=== PATIENT | male | born 1985 | race Caucasian/White ===

== ENCOUNTER 2020-09-24 01:08 | Emergency (ER) | payer OTHER, SELFPAY ==
[2020-09-24] MEDS ORDERED: HYDROCODONE/APAP 10/325 TAB ONE (02:12)
--- NOTE | 2020-09-24 02:22 | EDPHYS ---
Physician Documentation [facility] Name: Silvino López Age: 35 yrs Sex: Male : 1985 Arrival Date: 09/24/2020 Time: 01:12 Bed 6 Private MD: ED Physician Chris Slater HPI: 09/24 01:15 This 35 yrs old Male presents to ER via EMS with complaints of Ankle Injury. rn 01:15 The patient presents with an injury, pain, swelling. The complaints affect the right rn ankle. Onset: The symptoms/episode began/occurred just prior to arrival. Associated signs and symptoms: Pertinent positives: swelling, Pertinent negatives: weakness. Modifying factors: The symptoms are alleviated by OTC meds, the symptoms are aggravated by movement. Severity of symptoms: At their worst the symptoms were moderate, in the emergency department the symptoms have improved. The patient has not experienced similar symptoms in the past. The patient has not recently seen a physician. Reports right ankle injury after drinking and slipping in mud, heard a snap. No other injuries. Denies pain up towards knee or down to foot. . Historical: - Allergies: 01:15 No Known Allergies; jm8 - Home Meds: 01:15 Lisinopril Oral [Active]; atorvastatin oral [Active]; Metoprolol Tartrate Oral [Active];8 - PMHx: 01:16 Hypertensive disorder; Hypercholesterolemia; jm8 - PSHx: 01:16 None; jm8 - Immunization history:: Adult Immunizations up to date. - Social history:: Smoking status: Reported history of juuling and/or vaping. - Family history:: not pertinent. - Hospitalizations: : No recent hospitalization is reported. ROS: 01:15 Constitutional: Negative for fever, chills, and weight loss, Neck: Negative for injury, rn pain, and swelling, Cardiovascular: Negative for chest pain, palpitations, and edema, Back: Negative for injury and pain, MS/Extremity: + right ankle injury and pain Skin: No open wounds Neuro: Negative for weakness, numbness, tingling Exam: 01:15 Constitutional: This is a well developed, well nourished patient who is awake, alert, rn and in no acute distress. Head/Face: Normocephalic, atraumatic. MS/ Extremity: Pulses equal, no cyanosis. Neurovascular intact. + mild bimalleolar tenderness of right ankle, mild swelling at ankle, no gross deformity or rotation. In [place] splint. No tenderness in foot or knee of RLE. Vital Signs: 01:12 BP 132 / 74; Pulse 99; Resp 16; Temp 98.2; Pulse Ox 97% on R/A; Weight 99.79 kg; Height jm8 6 ft. (182.88 cm); Pain 6/10; 02:19 BP 109 / 76; Pulse 107; Resp 16; Pulse Ox 98% on R/A; 8 01:12 Body Mass Index 29.84 (99.79 kg, 182.88 cm) [facility] MDM: 01:12 Patient medically screened. rn 02:20 Differential diagnosis: fracture, sprain. Data reviewed: vital signs, nurses notes, rn radiologic studies, plain films, and as a result, I will discharge patient. Test interpretation: by ED physician or midlevel provider: plain radiologic studies, Xray right ankle shows minimally displaced tri-malleolar fracture. . Counseling: I had a detailed discussion with the patient and/or guardian regarding: the historical points, exam findings, and any diagnostic results supporting the discharge/admit diagnosis, radiology results, the need for outpatient follow up, to return to the emergency department if symptoms worsen or persist or if there are any questions or concerns that arise at home. Response to treatment: the patient's symptoms have markedly improved after treatment, and as a result, I will discharge patient. Special discussion: I discussed with the patient/guardian in detail that at this point there is no indication for admission to the hospital. It is understood, however, that if the symptoms persist or worsen the patient needs to return immediately for re-evaluation. Based on the history and exam findings, there is no indication for further emergent testing or inpatient evaluation. I discussed with the patient/guardian the need to see the orthopedic surgeon for further evaluation of the symptoms. 09/24 01:12 Order name: XRAY Ankle RIGHT 3 view rn 09/24 01:44 Order name: Splint Leg: Short Leg: with stirrup; Complete Time: 01:45 rn 09/24 02:24 Order name: Crutches; Complete Time: 02:46 rn Administered Medications: 02:17 Drug: [place] (HYDROcodone-acetaminophen) 10 mg-325 mg 1 tabs Route: PO; 8 02:48 Follow up: Response: No adverse reaction jm8 Disposition Summary: 09/24/20 02:22 Discharge Ordered Location: Home rn Problem: new rn Symptoms: have improved rn Condition: Stable rn Diagnosis - Displaced fracture of lateral malleolus of right fibula rn - Fracture of medial malleolus - With displacement rn - Fracture of lower end of tibia - Posterior tibia, nondisplaced rn Followup: rn - With: - When: 2 - 3 days - Reason: Recheck today's complaints, Re-evaluation by your physician Discharge Instructions: - Discharge Summary Sheet rn - Ankle Fracture rn - Cast or Splint Care, Adult rn - Displaced Trimalleolar Ankle Fracture Treated With ORIF rn Forms: - Medication Reconciliation Form rn - Thank You Letter rn - Antibiotic mergers and acquisitions attorney - Prescription Opioid Use rn Prescriptions: - Tramadol 50 mg Oral Tablet - take 1 tablet by ORAL route every 8 hours as needed; 15 tablet; Refills: 0, rn Product Selection Permitted Signatures: Dispatcher [employer] EDChris Dorado MD MD rn Malcaba, Joseph, RN RN jm8 Corrections: (The following items were deleted from the chart) 01:17 01:15 Constitutional: Negative for fever, chills, and weight loss, MS/Extremity: + rn right ankle injury and pain Skin: No open wounds Neuro: Negative for weakness, numbness, tingling rn
--- NOTE | 2020-09-24 02:22 | ER ---
Nurse's Notes [facility] Name: Silvino López Age: 35 yrs Sex: Male : 1985 Arrival Date: 09/24/2020 Time: 01:12 Bed 6 Private MD: Diagnosis: Displaced fracture of lateral malleolus of right fibula;Fracture of medial malleolus-With displacement;Fracture of lower end of tibia-Posterior tibia, nondisplaced Presentation: 09/24 01:12 Chief complaint: EMS states: patient slipped in some mud and fell. States he heard a jm8 pop and had sudden pain in right ankle. Swelling noted to right ankle. Patient states he drank about half a bottle of [place] tonight. Coronavirus screen: Client denies travel out of the [place] in the last 14 days. Ebola Screen: Patient negative for fever greater than or equal to 101.5 degrees Fahrenheit, and additional compatible Ebola Virus Disease symptoms Patient denies exposure to infectious person. Patient denies travel to an Ebola-affected area in the 21 days before illness onset. Initial Sepsis Screen: Does the patient meet any 2 criteria? No. Patient's initial sepsis screen is negative. Does the patient have a suspected source of infection? No. Patient's initial sepsis screen is negative. Risk Assessment: Do you want to hurt yourself or someone else? Patient reports no desire to harm self or others. Onset of symptoms was September 24, 2020 at 00:00. Care prior to arrival: Splint applied. Medication(s) given: Tylenol, 1000 mg, zofran 4 mg, IV initiated. 01:12 Method Of Arrival: EMS: [facility] jm8 01:12 Acuity: ELLEN 3 jm8 Triage Assessment: 01:23 General: Appears in no apparent distress. uncomfortable, Behavior is calm, cooperative, jm8 appropriate for age. Pain: Complains of pain in right ankle Pain currently is 6 out of 10 on a pain scale. Quality of pain is described as aching, Pain began suddenly, 1 hour ago. Also complains of nausea. EENT: No deficits noted. No signs and/or symptoms were reported regarding the EENT system. Neuro: No deficits noted. Cardiovascular: No deficits noted. Respiratory: No deficits noted. GI: No deficits noted. No signs and/or symptoms were reported involving the gastrointestinal system. : No deficits noted. No signs and/or symptoms were reported regarding the genitourinary system. Derm: No deficits noted. No signs and/or symptoms reported regarding the dermatologic system. Musculoskeletal: Bony deformity noted of right ankle Swelling present in right ankle. Historical: - Allergies: 01:15 No Known Allergies; jm8 - Home Meds: 01:15 Lisinopril Oral [Active]; atorvastatin oral [Active]; Metoprolol Tartrate Oral [Active];jm8 - PMHx: 01:16 Hypertensive disorder; Hypercholesterolemia; jm8 - PSHx: 01:16 None; jm8 - Immunization history:: Adult Immunizations up to date. - Social history:: Smoking status: Reported history of juuling and/or vaping. - Family history:: not pertinent. - Hospitalizations: : No recent hospitalization is reported. Screenin:17 Abuse screen: Denies threats or abuse. Denies injuries from another. Nutritional jm8 screening: No deficits noted. Tuberculosis screening: No symptoms or risk factors identified. Fall Risk None identified. Vital Signs: 01:12 BP 132 / 74; Pulse 99; Resp 16; Temp 98.2; Pulse Ox 97% on R/A; Weight 99.79 kg; Height jm8 6 ft. (182.88 cm); Pain 6/10; 02:19 BP 109 / 76; Pulse 107; Resp 16; Pulse Ox 98% on R/A; jm8 01:12 Body Mass Index 29.84 (99.79 kg, 182.88 cm) jm8 ED Course: 01:12 Patient arrived in ED. ag3 01:12 Chris Slater MD is Attending Physician. rn 01:15 Triage completed. jm8 01:17 Arm band placed on right wrist. jm8 01:17 Patient has correct armband on for positive identification. Bed in low position. Call jm8 light in reach. Side rails up X2. 01:30 Maintain EMS IV. Dressing intact. Good blood return noted. Site clean \T\ dry. Gauge \T\ jm 8 site: 20g left hand. 01:31 XRAY Ankle RIGHT 3 view In Process Unspecified. EDMS 02:18 Orthoglass splint: Posterior short lleg splint applied on right leg. stirrup splint jm8 applied on right leg. 02:22 Austen Grant MD is Referral Physician. rn 02:47 No provider procedures requiring assistance completed. IV discontinued, intact, jm8 bleeding controlled. Administered Medications: 02:17 Drug: [place] (HYDROcodone-acetaminophen) 10 mg-325 mg 1 tabs Route: PO; jm8 02:48 Follow up: Response: No adverse reaction jm8 Outcome: 02:22 Discharge ordered by . rn 02:46 Discharged to home via wheelchair, with crutches, with family. jm8 02:46 Condition: good 02:46 Discharge instructions given to patient, Instructed on discharge instructions, follow up and referral plans. medication usage, crutch walking, Demonstrated understanding of instructions, follow-up care, medications, crutch walking, splint care, Prescriptions given X 1. 02:47 Patient left the ED. jm8 Signatures: Dispatcher [employer] EDMS Chris Slater MD MD rn Gomez, Alice ag3 Ezio Duke, RN RN jm8
--- OUTSIDE RECORDS SUMMARY | 2020-09-24 02:29 | XMS REPORT | Continuity of Care Document ---
:[address] [facility] t Address [address] [place] [address] [address] [place] [address] Care Team Providers Name Role Phone Doctor Unassigned, Name Attending Clinician Unavailable Care, Primary Attending Clinician Unavailable Problems This patient has no known problems. Allergies, Adverse Reactions, Alerts This patient has no known allergies or adverse reactions. Medications This patient has no known medications. Procedures This patient has no known procedures. Encounters Start End Encounter Admission Attending Care Care Encounter Source Date/Time Date/Time Type Type Clinicians Facility Department ID 2020-09-21 2020-09-21 Orders Doctor KLAUDIA [id number] 00:00:00 00:00:00 Only UnassignedAGUSTIN [id number] [facility] [id number] 2020-09-15 2020-09-15 Office Care, Jose PARIKH [id number] 09:38:15 13:28:59 Visit [facility] [id number] [facility] [id number] UNIT [id number] Results This patient has no known results.
[2020-09-24 03:06] VITALS: BP 109/76; TEMP 98.2; O2SAT 98
--- NOTE | 2020-09-24 09:31 | RAD REPORT ---
EXAM DESCRIPTION: RAD - Ankle Right 3 View - 09/24/2020 1:31 am CLINICAL HISTORY: slipped in mud, heard a snap;Pain Pain and swelling, trauma COMPARISON: No comparisons FINDINGS: Oblique fracture of the distal fibula is present. Mildly displaced fracture of the medial malleolus and posterior malleolus noted. Moderate surrounding soft tissue swelling. Small to moderate posterior and plantar calcaneal spurs. IMPRESSION: Trimalleolar ankle fracture is present.
== END 2020-09-24 02:47 | disposition home or self-care (01) ==
LOC: ER 01:08
PROC: 2W3QX1Z Immobilization of Right Lower Leg using Splint (ICD-10-PCS; principal; 2020-09-24)
DX: S82.51XA Displaced fracture of medial malleolus of right tibia, initial encounter for closed fracture (principal); S82.61XA Displaced fracture of lateral malleolus of right fibula, initial encounter for closed fracture; W01.0XXA Fall on same level from slipping, tripping and stumbling without subsequent striking against object, initial encounter; I10 Essential (primary) hypertension; E78.00 Pure hypercholesterolemia, unspecified
CPT/HCPCS: 99284

== ENCOUNTER 2020-12-17 04:38 | Emergency (ER) | payer SELFPAY ==
[2020-12-17] MEDS ORDERED: MORPHINE 4 MG/ML SYR ONE (05:47)
--- NOTE | 2020-12-17 06:27 | ER ---
Nurse's Notes [facility] Name: Silvino López Age: 35 yrs Sex: Male : 1985 Arrival Date: 12/17/2020 Time: 04:42 Bed 13 Private MD: Diagnosis: Musculoskeletal Pain Presentation: 12/17 04:48 Chief complaint: Patient states: patient states that he had surgery on 11.30.20 on C6 and lh3 C7 vertebrae. due to having numbness and tingling in arms. Patient states that it feels way worse now after the surgery. C/O pain left arm pain 11/01. Took Ibuprofen at 2300 yesterday. Coronavirus screen: Vaccine status: Patient reports receiving the 1st dose of the Covid vaccine. Date November 2020. Ebola Screen: No symptoms or risks identified at this time. Initial Sepsis Screen: Does the patient meet any 2 criteria? No. Patient's initial sepsis screen is negative. Does the patient have a suspected source of infection? No. Patient's initial sepsis screen is negative. Risk Assessment: Do you want to hurt yourself or someone else? Patient reports no desire to harm self or others. Onset of symptoms was December 15, 2020. Care prior to arrival: Medication(s) given: Motrin, 800 mg, 2300 12.16.20. 04:48 Method Of Arrival: Ambulatory 3 04:48 Acuity: ELLEN 3 3 Triage Assessment: 04:52 General: Appears in no apparent distress. Behavior is calm, cooperative, appropriate lh3 for age. Pain: Complains of pain in left arm Pain radiates to posterior aspect of left shoulder. Historical: - Home Meds: 04:52 lisinopril Oral [Active]; Metoprolol Tartrate Oral [Active]; lh3 - PMHx: 04:52 Hypercholesterolemia; Hypertensive disorder; lh3 - Immunization history:: Adult Immunizations up to date. - Social history:: Smoking status: Reported history of juuling and/or vaping. Screenin:35 Abuse screen: Denies threats or abuse. Denies injuries from another. Nutritional sj1 screening: No deficits noted. Tuberculosis screening: No symptoms or risk factors identified. Fall Risk None identified. Vital Signs: 04:48 BP 150 / 94; Pulse 100; Resp 18; Temp 98.3; Pulse Ox 99% on R/A; Weight 117.93 kg; 3 Height 6 ft. (182.88 cm); 06:59 BP 134 / 78; Pulse 65; Resp 18; Temp 98.4; Pulse Ox 100% ; Pain 0/10; sj1 04:48 Body Mass Index 35.26 (117.93 kg, 182.88 cm) 3 ED Course: 04:42 Patient arrived in ED. 04:52 Triage completed. 3 04:52 Arm band placed on right wrist. [facility] 04:57 Ke Allison MD is Attending Physician. 7 05:35 Patient has correct armband on for positive identification. Bed in low position. Call 1 light in reach. Side rails up X 1. 05:35 UPPER EXTREMITY VENOUS UNILATE Sent. sj1 05:35 No provider procedures requiring assistance completed. sj1 06:24 UPPER EXTREMITY VENOUS UNILATE In Process Unspecified. EDMS 06:59 Patient did not have IV access during this emergency room visit. sj1 Administered Medications: 05:34 Drug: morphine 4 mg Route: IM; Site: right deltoid; sj1 07:01 Follow up: Response: No adverse reaction sj1 Outcome: 06:26 Discharge ordered by . 7 06:59 Discharged to home ambulatory. sj1 06:59 Condition: stable 06:59 Discharge instructions given to patient, Instructed on discharge instructions, follow up and referral plans. Demonstrated understanding of instructions. 07:00 Patient left the ED. sj1 Signatures: Dispatcher [employer] EDPA Ke Allison MD MD [facility] Aarti Zapata dEen Cuevas RN RN [facility] Nevaeh Bland RN RN sj1
--- NOTE | 2020-12-17 06:27 | EDPHYS ---
Physician Documentation [facility] Name: Silvino López Age: 35 yrs Sex: Male : 1985 Arrival Date: 12/17/2020 Time: 04:42 Bed 13 Private MD: ED Physician Ke Allison HPI: 12/17 05:19 This 35 yrs old Male presents to ER via Ambulatory with complaints of Pain mh7 down left side, thinks from recent surgery. 05:19 The patient or guardian complains of pain, that is acute. The complaints affect the mh7 Left arm. Context: The problem was sustained at an unknown location, resulted from unknown cause. Onset: The symptoms/episode began/occurred 1 week(s) ago. Treatment prior to arrival includes: over the counter medications, NSAIDS. Modifying factors: The symptoms are alleviated by nothing. the symptoms are aggravated by Touching. Associated signs and symptoms: Pertinent negatives: decreased range of motion, deformity, erythema, fever, nausea, numbness, swelling, tingling, vomiting, warmth, weakness. Severity of symptoms: At their worst the symptoms were moderate, 3 day(s) ago, in the emergency department the symptoms are unchanged. Patient states that he has left arm pain over the past week or 2. He states that he had neck surgery on 11/30/2020 for radiculopathy. States that this pain is different and new since having surgery. Denies any neck pain, fever, cough, chest pain, shortness of breath, abdominal pain, nausea, vomiting, dizziness, or focal weakness.. Historical: - Home Meds: 04:52 lisinopril Oral [Active]; Metoprolol Tartrate Oral [Active]; lh3 - PMHx: 04:52 Hypercholesterolemia; Hypertensive disorder; lh3 - Immunization history:: Adult Immunizations up to date. - Social history:: Smoking status: Reported history of juuling and/or vaping. ROS: 05:19 Constitutional: Negative for fever, chills, and weight loss, Eyes: Negative for injury, mh7 pain, redness, and discharge, ENT: Negative for injury, pain, and discharge, Neck: Negative for injury, pain, and swelling, Cardiovascular: Negative for chest pain, palpitations, and edema, Respiratory: Negative for shortness of breath, cough, wheezing, and pleuritic chest pain, Abdomen/GI: Negative for abdominal pain, nausea, vomiting, diarrhea, and constipation, Back: Negative for injury and pain, : Negative for injury, bleeding, discharge, and swelling, Skin: Negative for injury, rash, and discoloration, Neuro: Negative for headache, weakness, numbness, tingling, and seizure, Psych: Negative for depression, anxiety, suicide ideation, homicidal ideation, and hallucinations, Allergy/Immunology: Negative for hives, rash, and allergies, Endocrine: Negative for neck swelling, polydipsia, polyuria, polyphagia, and marked weight changes, Hematologic/Lymphatic: Negative for swollen nodes, abnormal bleeding, and unusual bruising. Exam: 05:19 Constitutional: This is a well developed, well nourished patient who is awake, alert, mh7 and in no acute distress. Head/Face: Normocephalic, atraumatic. Eyes: Pupils equal round and reactive to light, extra-ocular motions intact. Lids and lashes normal. Conjunctiva and sclera are non-icteric and not injected. Cornea within normal limits. Periorbital areas with no swelling, redness, or edema. Neck: Trachea midline, no thyromegaly or masses palpated, and no cervical lymphadenopathy. Supple, full range of motion without nuchal rigidity, or vertebral point tenderness. No Meningismus. Chest/axilla: Normal chest wall appearance and motion. Nontender with no deformity. No lesions are appreciated. Cardiovascular: Regular rate and rhythm with a normal S1 and S2. No gallops, murmurs, or rubs. Normal PMI, no JVD. No pulse deficits. Respiratory: Lungs have equal breath sounds bilaterally, clear to auscultation and percussion. No rales, rhonchi or wheezes noted. No increased work of breathing, no retractions or nasal flaring. Abdomen/GI: Soft, non-tender, with normal bowel sounds. No distension or tympany. No guarding or rebound. No evidence of tenderness throughout. Back: No spinal tenderness. No costovertebral tenderness. Full range of motion. Skin: Warm, dry with normal turgor. Normal color with no rashes, no lesions, and no evidence of cellulitis. 05:19 Neuro: Awake and alert, GCS 15, oriented to person, place, time, and situation. Cranial nerves II-XII grossly intact. Motor strength 5/5 in all extremities. Sensory grossly intact. Cerebellar exam normal. Normal gait. Psych: Awake, alert, with orientation to person, place and time. Behavior, mood, and affect are within normal limits. 05:19 Musculoskeletal/extremity: Extremities: noted in the Medial left upper arm: pain, tenderness, ROM: intact in all extremities, Circulation is intact in all extremities. Sensation intact. Compartment Syndrome exam of affected extremity: is normal. no numbness, no tingling, no sensation deficit, no palor, no weak pulses, Joints: All joints appear normal with full range of motion. Vital Signs: 04:48 BP 150 / 94; Pulse 100; Resp 18; Temp 98.3; Pulse Ox 99% on R/A; Weight 117.93 kg; lh3 Height 6 ft. (182.88 cm); 06:59 BP 134 / 78; Pulse 65; Resp 18; Temp 98.4; Pulse Ox 100% ; Pain 0/10; sj1 04:48 Body Mass Index 35.26 (117.93 kg, 182.88 cm) 3 MDM: 06:22 Differential diagnosis: tendonitis, DVT, musculoskeletal pain. Data reviewed: vital [facility] signs, nurses notes, radiologic studies, ultrasound. Data interpreted: Pulse oximetry: on room air is 99 %. Interpretation: normal. Counseling: I had a detailed discussion with the patient and/or guardian regarding: the historical points, exam findings, and any diagnostic results supporting the discharge/admit diagnosis, the presence of at least one elevated blood pressure reading (>120/80) during this emergency department visit, radiology results, the need for outpatient follow up, a neurosurgeon, to return to the emergency department if symptoms worsen or persist or if there are any questions or concerns that arise at home. Response to treatment: the patient's symptoms have resolved after treatment, the patient's blood pressure is in an acceptable range, mental status has returned to baseline, the patient no longer shows bradycardia, the patient is not short of breath, the patient is not tachycardic, the patient's pain is gone, the patient's temperature has normalized. 06:26 Patient medically screened. [facility] 12/17 05:22 Order name: UPPER EXTREMITY VENOUS UNILATE [facility] 12/17 05:19 Order name: EKG; Complete Time: 05:19 [facility] 12/17 05:19 Order name: EKG - Nurse/Tech; Complete Time: 05:35 mh7 Administered Medications: 05:34 Drug: morphine 4 mg Route: IM; Site: right deltoid; sj1 07:01 Follow up: Response: No adverse reaction sj1 Disposition Summary: 12/17/20 06:26 Discharge Ordered Location: Home [facility] Problem: an ongoing problem [facility] Symptoms: have improved [facility] Condition: Stable [facility] Diagnosis - Musculoskeletal Pain [facility] Followup: [facility] - With: Private Physician - When: 1 - 2 days - Reason: Worsening of condition, Recheck today's complaints, Continuance of care, Re-evaluation by your physician Discharge Instructions: - Discharge Summary Sheet [facility] - Musculoskeletal Pain [facility] Forms: - Medication Reconciliation Form [facility] - Thank You Letter [facility] - Antibiotic Education [facility] - Prescription Opioid Use [facility] Signatures: Dispatcher [employer] Ke Mike MD MD 7 Eden Cuevas RN RN 3 Nevaeh Bland RN RN sj1 Corrections: (The following items were deleted from the chart) 05:22 05:19 Extremity Venous [id number] ordered. EDMS EDMS
[2020-12-17 07:25] VITALS: BP 134/78; TEMP 98.4; O2SAT 100
--- NOTE | 2020-12-17 09:52 | RAD REPORT ---
EXAM DESCRIPTION: US - UPPER EXTREMITY VENOUS UNILATE - 12/17/2020 6:24 am CLINICAL HISTORY: PAIN Arm pain and swelling COMPARISON: No comparisons FINDINGS: Left upper extremity venous system was interrogated with Doppler technique. Normal flow, c ompressibility and augmentation was noted. There is no DVT present. IMPRESSION: No evidence of left upper extremity deep venous thrombosis.
== END 2020-12-17 07:00 | disposition home or self-care (01) ==
LOC: ER 04:38
DX: M79.602 Pain in left arm (principal); I10 Essential (primary) hypertension; E78.00 Pure hypercholesterolemia, unspecified
CPT/HCPCS: 93005; 93971; 96372; 99283

== ENCOUNTER 2021-09-24 02:58 | Emergency (ER) | payer SELFPAY ==
[2021-09-24] MEDS ORDERED: MORPHINE 4 MG/ML SYR ONE (03:31)
[2021-09-24] MEDS ORDERED: KETOROLAC 30 MG/ML INJ ONE (03:32)
[2021-09-24] MEDS ORDERED: ONDANSETRON 4 MG/2 ML VIAL ONE (03:32)
[2021-09-24] MEDS ORDERED: NA CHLORIDE 0.9% 1,000 ML ONE ×2 (03:32→06:13)
[2021-09-24 03:45] LABS: Absolute Lymphocytes (CBC) 1.8 K/uL (0.7-4.9); Hematocrit 41.8 % (39.6-49.0); Lymphocytes % 18.9 % (15.3-44.8); MPV 7.3 fL (7.6-11.3)
--- NOTE | 2021-09-24 03:53 | RAD REPORT ---
EXAM DESCRIPTION: CTStone Protocol - 09/24/2021 3:45 am CLINICAL HISTORY: Flank pain, kidney stone suspected COMPARISON: No comparisons TECHNIQUE: CT of the abdomen and pelvis was performed. All CT scans are performed using dose optimization technique as appropriate and may include automated exposure control or mA/KV adjustment according to patient size. FINDINGS: Lower chest: No acute abnormality. Liver: Hepatic steatosis Biliary: No biliary ductal dilatation. Stomach: No significant focal abnormality. Duodenum: No significant focal abnormality. Pancreas: No significant abnormality. Spleen: No significant abnormality. Adrenal: No suspicious lesions. Kidney/ureter: Mild left-sided hydronephrosis secondary to a 7 mm stone in the left proximal ureter. Bilateral nephrolithiasis. Retroperitoneum: No retroperitoneal adenopathy. Vascular: No aneurysm. Bowel: No significant focal abnormality. Normal appendix. Peritoneum: No ascites or free air. Small fat containing periumbilical hernia. Bladder: Grossly unremarkable. Reproductive: No adnexal masses. Bones: No acute fracture. Other: n/a IMPRESSION: Mild left-sided hydronephrosis secondary to a 7 mm stone in the left proximal ureter.
[2021-09-24 04:02] LABS: Albumin 3.6 g/dL (3.4-5.0); Bilirubin Total 0.4 mg/dL (0.2-1.0); Protein, Total 7.5 g/dL (6.4-8.2)
--- NOTE | 2021-09-24 05:47 | ER ---
Nurse's Notes [facility] Name: Silvino López Age: 36 yrs Sex: Male : 1985 Arrival Date: 09/24/2021 Time: 02:58 Bed 20 Private MD: Diagnosis: Hydronephrosis with renal and ureteral calculous obstruction-7 mm left proximal Presentation: 09/24 03:04 Chief complaint: Patient states: "i just have this incredibly sharp pain in my side and tw5 it wont go away. I feel sick and nauseous.". Coronavirus screen: Vaccine status: Patient reports receiving the 2nd dose of the covid vaccine. Moderna. Ebola Screen: Patient negative for fever greater than or equal to 101.5 degrees Fahrenheit, and additional compatible Ebola Virus Disease symptoms Patient denies exposure to infectious person. Patient denies travel to an Ebola-affected area in the 21 days before illness onset. Initial Sepsis Screen: Does the patient meet any 2 criteria? No. Patient's initial sepsis screen is negative. Does the patient have a suspected source of infection? No. Patient's initial sepsis screen is negative. Initial Sepsis Screen: Does the patient meet any 2 criteria?. Risk Assessment: Do you want to hurt yourself or someone else? Patient reports no desire to harm self or others. Onset of symptoms was September 23, 2021 at 15:00. 03:04 Method Of Arrival: Ambulatory tw5 03:04 Acuity: ELLEN 3 tw5 Triage Assessment: 03:06 General: Appears uncomfortable, Behavior is crying. Pain: Pain currently is 10 out of tw5 10 on a pain scale. GI: Reports nausea. Historical: - Allergies: 03:06 No Known Allergies; tw5 - Home Meds: 03:06 lisinopril 20 mg oral tab [Active]; metoprolol tartrate 50 mg oral tab [Active]; Livalo tw5 oral [Active]; - PMHx: 03:06 Hypercholesterolemia; Hypertensive disorder; tw5 - PSHx: 03:06 disc fusion; tw5 - Immunization history:: Flu vaccine is not up to date. - Social history:: Smoking status: Reported history of juuling and/or vaping. Screenin:47 Abuse screen: Denies threats or abuse. Nutritional screening: No deficits noted. ll3 Tuberculosis screening: No symptoms or risk factors identified. Fall Risk No fall in past 12 months (0 pts). No secondary diagnosis (0 pts). IV access (20 points). Ambulatory Aid- None/Bed Rest/Nurse Assist (0 pts). Gait- Normal/Bed Rest/Wheelchair (0 pts) Mental Status- Oriented to own ability (0 pts). Total Fleming Fall Scale indicates No Risk (0-24 pts). Assessment: 03:15 General: Appears uncomfortable, Behavior is calm, cooperative. Pain: Complains of pain ll3 in left mid back and left low back Pain currently is 10 out of 10 on a pain scale. Pain began 2-3 days ago. Is continuous. Neuro: Level of Consciousness is awake, alert, obeys commands, Oriented to person, place, time, situation. Respiratory: Respiratory effort is even, unlabored, Respiratory pattern is regular, symmetrical. GI: Abdomen is round non-distended, Reports nausea, Patient currently denies vomiting. Derm: Skin is pink, warm \\T\\ dry. 04:30 Reassessment: No changes from previously documented assessment. Patient and/or family ll3 updated on plan of care and expected duration. Pain level reassessed. Patient is alert, oriented x 3, equal unlabored respirations, skin warm/dry/pink. 07:05 Reassessment: No changes from previously documented assessment. report received night ll1 shift RN. 07:26 Reassessment: No changes from previously documented assessment. Patient and/or family ll1 updated on plan of care and expected duration. Pain level reassessed. Patient is alert, oriented x 3, equal unlabored respirations, skin warm/dry/pink. Patient states feeling better. Vital Signs: 03:04 BP 135 / 70; Pulse 88; Resp 22; Temp 98.6; Pulse Ox 96% on R/A; Weight 65.77 kg; Height tw5 6 ft. 0 in. (182.88 cm); Pain 10/10; 04:30 BP 113 / 63; Pulse 80; Resp 18; Pulse Ox 98% on R/A; ll3 07:25 BP 140 / 77; Pulse 78; Resp 17; Pulse Ox 100% on R/A; ll1 03:04 Body Mass Index 19.67 (65.77 kg, 182.88 cm) tw5 ED Course: 02:58 Patient arrived in ED. am2 03:06 Triage completed. tw5 03:06 Arm band placed on Patient placed in an exam room. tw5 03:11 Kiran Gambino MD is Attending Physician. luli 03:46 Elsy Jansen, RADHA is Primary Nurse. ll3 03:47 CT Stone Protocol In Process Unspecified. EDMS 03:47 Patient has correct armband on for positive identification. Bed in low position. Call ll3 light in reach. Side rails up X 1. Adult w/ patient. 05:47 Chang Dobbs MD is Referral Physician. luli 07:25 No provider procedures requiring assistance completed. IV discontinued, intact, ll1 bleeding controlled, No redness/swelling at site. Pressure dressing applied. Administered Medications: 03:32 Drug: Zofran (Ondansetron) 4 mg Route: IVP; Site: right antecubital; ll3 07:33 Follow up: Response: No adverse reaction ll1 03:33 Drug: morphine 4 mg Route: IVP; Infused Over: 4 mins; Site: right antecubital; ll3 07:24 Follow up: Response: No adverse reaction ll1 03:41 Drug: NS 0.9% 1000 ml Route: IV; Rate: 1 bolus; Site: right antecubital; ll3 07:33 Follow up: Response: No adverse reaction; IV Status: Completed infusion; IV Intake: ll1 1000ml 03:41 Drug: Ketorolac 30 mg Route: IVP; Site: right antecubital; ll3 07:24 Follow up: Response: No adverse reaction ll1 06:13 Drug: NS 0.9% 1000 ml Route: IV; Rate: 1 bolus; Site: right antecubital; ke1 07:24 Follow up: Response: No adverse reaction; IV Status: Completed infusion; IV Intake: ll1 1000ml 06:14 Drug: Rocephin (cefTRIAXone) 1 grams Route: IV; Rate: per protocol; Site: right ke1 antecubital; 07:24 Follow up: Response: No adverse reaction; IV Status: Completed infusion; IV Intake: [id number] Medication: 05:00 VIS not applicable for this client. ll3 Intake: 07:24 IV: 50ml; Total: 50ml. ll1 07:24 IV: 1000ml; Total: 1050ml. ll1 07:33 IV: 1000ml; Total: 2050ml. ll1 Outcome: 05:47 Discharge ordered by . luli 07:32 Patient left the ED. ll1 07:32 Discharged to home ambulatory. ll1 07:32 Condition: stable 07:32 Discharge instructions given to patient, Instructed on discharge instructions, follow up and referral plans. no drinking with medication, no driving heavy equipment, medication usage, Demonstrated understanding of instructions, follow-up care, medications, Prescriptions given X 6 Signatures: Dispatcher [employer] EDSC Kiran Gambino MD MD cha Moreno, Brittany am2 Kostas Means, RN RN ll1 Kylah Garcia tw5 Elsy Jansen RN RN ll3 Salvador Ritter RN RN ke1
--- NOTE | 2021-09-24 05:48 | EDPHYS ---
Physician Documentation [facility] Name: Silvino López Age: 36 yrs Sex: Male : 1985 Arrival Date: 09/24/2021 Time: 02:58 Bed 20 Private MD: ED Physician Kiran Gambino HPI: 09/24 03:12 This 36 yrs old Male presents to ER via Ambulatory with complaints of Flank luli Pain, Nausea. 03:12 The patient complains of pain in the left low back and left mid back. Location: left luli low back and left mid back. Onset: The symptoms/episode began/occurred just prior to arrival, this morning. Modifying factors: The symptoms are alleviated by nothing. the symptoms are aggravated by nothing. 03:14 Associated signs and symptoms: Pertinent positives: vomiting. Severity of pain: At its luli worst the pain was moderate in the emergency department the pain is unchanged. The patient has not experienced similar symptoms in the past. Historical: - Allergies: 03:06 No Known Allergies; tw5 - Home Meds: 03:06 lisinopril 20 mg oral tab [Active]; metoprolol tartrate 50 mg oral tab [Active]; Livalo tw5 oral [Active]; - PMHx: 03:06 Hypercholesterolemia; Hypertensive disorder; tw5 - PSHx: 03:06 disc fusion; tw5 - Immunization history:: Flu vaccine is not up to date. - Social history:: Smoking status: Reported history of juuling and/or vaping. ROS: 03:15 Constitutional: Negative for fever, chills, and weight loss, Eyes: Negative for injury, luli pain, redness, and discharge, ENT: Negative for injury, pain, and discharge, Neck: Negative for injury, pain, and swelling, Cardiovascular: Negative for chest pain, palpitations, and edema, Respiratory: Negative for shortness of breath, cough, wheezing, and pleuritic chest pain, Abdomen/GI: Negative for abdominal pain, nausea, vomiting, diarrhea, and constipation, : Negative for injury, bleeding, discharge, and swelling, MS/Extremity: Negative for injury and deformity, Skin: Negative for injury, rash, and discoloration, Neuro: Negative for headache, weakness, numbness, tingling, and seizure, Psych: Negative for depression, anxiety, suicide ideation, homicidal ideation, and hallucinations, Allergy/Immunology: Negative for hives, rash, and allergies, Endocrine: Negative for neck swelling, polydipsia, polyuria, polyphagia, and marked weight changes, Hematologic/Lymphatic: Negative for swollen nodes, abnormal bleeding, and unusual bruising. 03:15 Back: Positive for flank pain, on the left. Exam: 03:15 Constitutional: This is a well developed, well nourished patient who is awake, alert, luli and in no acute distress. Head/Face: Normocephalic, atraumatic. Eyes: Pupils equal round and reactive to light, extra-ocular motions intact. Lids and lashes normal. Conjunctiva and sclera are non-icteric and not injected. Cornea within normal limits. Periorbital areas with no swelling, redness, or edema. ENT: Nares patent. No nasal discharge, no septal abnormalities noted. Tympanic membranes are normal and external auditory canals are clear. Oropharynx with no redness, swelling, or masses, exudates, or evidence of obstruction, uvula midline. Mucous membranes moist. Neck: Trachea midline, no thyromegaly or masses palpated, and no cervical lymphadenopathy. Supple, full range of motion without nuchal rigidity, or vertebral point tenderness. No Meningismus. Chest/axilla: Normal chest wall appearance and motion. Nontender with no deformity. No lesions are appreciated. Cardiovascular: Regular rate and rhythm with a normal S1 and S2. No gallops, murmurs, or rubs. Normal PMI, no JVD. No pulse deficits. Respiratory: Lungs have equal breath sounds bilaterally, clear to auscultation and percussion. No rales, rhonchi or wheezes noted. No increased work of breathing, no retractions or nasal flaring. Abdomen/GI: Soft, non-tender, with normal bowel sounds. No distension or tympany. No guarding or rebound. No evidence of tenderness throughout. Male : Normal genitalia with no discharge or lesions. Skin: Warm, dry with normal turgor. Normal color with no rashes, no lesions, and no evidence of cellulitis. 03:15 Back: pain, that is moderate, ROM is normal, normal spinal alignment noted, CVA tenderness, that is mild, is noted on the left. Vital Signs: 03:04 BP 135 / 70; Pulse 88; Resp 22; Temp 98.6; Pulse Ox 96% on R/A; Weight 65.77 kg; Height tw5 6 ft. 0 in. (182.88 cm); Pain 10/10; 04:30 BP 113 / 63; Pulse 80; Resp 18; Pulse Ox 98% on R/A; ll3 07:25 BP 140 / 77; Pulse 78; Resp 17; Pulse Ox 100% on R/A; ll1 03:04 Body Mass Index 19.67 (65.77 kg, 182.88 cm) tw5 MDM: 03:11 Patient medically screened. [facility] 03:15 Differential diagnosis: nephrolithiasis, pyelonephritis, UTI. Data reviewed: vital luli signs, nurses notes, lab test result(s), radiologic studies, CT scan. Data interpreted: secured entrance monitor: rate is 88 beats/min, rhythm is regular, Pulse oximetry: on room air is 96 %. Counseling: I had a detailed discussion with the patient and/or guardian regarding: the historical points, exam findings, and any diagnostic results supporting the discharge/admit diagnosis, lab results, radiology results, the need for outpatient follow up, a family practitioner, a urologist. 09/24 03:14 Order name: CBC with Diff; Complete Time: 05:46 [facility] 09/24 03:14 Order name: CMP; Complete Time: 05:46 [facility] 09/24 03:14 Order name: Lipase; Complete Time: 05:46 [facility] 09/24 03:14 Order name: Urine Microscopic Only [facility] 09/24 03:14 Order name: CT Stone Protocol; Complete Time: 05:46 [facility] 09/24 07:22 Order name: Urine Dipstick-Ancillary [facility] 09/24 03:14 Order name: IV Saline Lock; Complete Time: 03:41 [facility] 09/24 03:14 Order name: Labs collected and sent; Complete Time: 03:41 [facility] 09/24 03:14 Order name: Urine Dipstick-Ancillary (obtain specimen); Complete Time: 07:24 [facility] Administered Medications: 03:32 Drug: Zofran (Ondansetron) 4 mg Route: IVP; Site: right antecubital; ll3 07:33 Follow up: Response: No adverse reaction ll1 03:33 Drug: morphine 4 mg Route: IVP; Infused Over: 4 mins; Site: right antecubital; ll3 07:24 Follow up: Response: No adverse reaction ll1 03:41 Drug: NS 0.9% 1000 ml Route: IV; Rate: 1 bolus; Site: right antecubital; ll3 07:33 Follow up: Response: No adverse reaction; IV Status: Completed infusion; IV Intake: ll1 1000ml 03:41 Drug: Ketorolac 30 mg Route: IVP; Site: right antecubital; ll3 07:24 Follow up: Response: No adverse reaction ll1 06:13 Drug: NS 0.9% 1000 ml Route: IV; Rate: 1 bolus; Site: right antecubital; ke1 07:24 Follow up: Response: No adverse reaction; IV Status: Completed infusion; IV Intake: ll1 1000ml 06:14 Drug: Rocephin (cefTRIAXone) 1 grams Route: IV; Rate: per protocol; Site: right ke1 antecubital; 07:24 Follow up: Response: No adverse reaction; IV Status: Completed infusion; IV Intake: [id number] Disposition Summary: 09/24/21 05:47 Discharge Ordered Location: Home luli Problem: new luli Symptoms: have improved luli Condition: Stable luli Diagnosis - Hydronephrosis with renal and ureteral calculous obstruction - 7 mm left proximal luli Followup: luli - With: Private Physician - When: 2 - 3 days - Reason: Recheck today's complaints, Continuance of care, Re-evaluation by your physician Followup: luli - With: - When: 2 - 3 days - Reason: Recheck today's complaints, Re-evaluation by your physician Discharge Instructions: - Discharge Summary Sheet luli - Kidney Stones luli - Kidney Stones, [id number] luli - Hydronephrosis luli - Dietary Guidelines to Help Prevent Kidney Stones luli Forms: - Medication Reconciliation Form luli - Thank You Letter luli - Antibiotic Education luli - Prescription Opioid Use luli - Work release form kr3 Prescriptions: - tamsulosin 0.4 mg Oral capsule - take 1 capsule by ORAL route once daily 1/2 hour following the same meal each luli day; 30 capsule; Refills: 0, Product Selection Permitted - Zofran 4 mg Oral Tablet - take 1 tablet by ORAL route every 12 hours As needed; 20 tablet; Refills: 0, [facility] Product Selection Permitted - Cipro 500 mg Oral Tablet - take 1 tablet by ORAL route every 12 hours for 7 days; 14 tablet; Refills: 0, [facility] Product Selection Permitted - Tylenol-Codeine #3 300 mg-30 mg Oral - take 2 tablet by ORAL route every 6 hours; 26 tablet; Refills: 0, Product [facility] Selection Permitted - promethazine 25 mg Oral Tablet - take 1 tablet by ORAL route every 6 hours As needed; 20 tablet; Refills: 0, [facility] Product Selection Permitted - ketorolac 10 mg Oral tablet - take 1 tablet by ORAL route every 6 hours for up to 5 days total use; 15 [facility] tablet; Refills: 0, Product Selection Permitted Signatures: Dispatcher [employer] Kiran Grijalva MD MD cha Wood, Tiffany tw5 Elsy Jansen RN RN ll3 Salvador Ritter RN RN ke1 Kostas Means RN ll1
[2021-09-24] MEDS ORDERED: CEFTRIAXONE 1000 MG/VIAL ONE (06:13)
[2021-09-24] MEDS ORDERED: NA CHLORIDE 0.9% 50 ML ONE (06:13)
[2021-09-24 07:22] LABS: Urine Blood 1+ (Negative); Urine Glucose Negative (Negative); Urine Protein Negative (Negative); Urine Specific Gravity 1.015 (1.005-1.030)
[2021-09-24 07:38] VITALS: TEMP 98.6
[2021-09-24 07:41] VITALS: BP 140/77; O2SAT 100
[2021-09-24 08:05] LABS: Urine Bacteria NONE SEEN /HPF (NONE SEEN)
== END 2021-09-24 07:32 | disposition home or self-care (01) ==
LOC: ER 02:58
DX: N13.2 Hydronephrosis with renal and ureteral calculous obstruction (principal); I10 Essential (primary) hypertension; E78.00 Pure hypercholesterolemia, unspecified
CPT/HCPCS: 36415; 74176; 76377; 80053; 81003; 81015; 83690; 85025; 87086; 87088; 96361; 96365; 96375; 99283; J2405; J7030

== ENCOUNTER 2022-08-08 14:01 | Emergency (ER) | payer SELFPAY ==
--- OUTSIDE RECORDS SUMMARY | 2022-08-08 14:06 | XMS REPORT | Continuity of Care Document ---
:1985 Author Organization [facility] t Address [address] [place] [id number] Care Team Providers Name Role Phone Essie Quintana Primary Care Physician LUIS CASTELLON Attending Clinician Unavailable ORLANDO DYE Attending Clinician Unavailable ORLANDO DYE Attending Clinician Unavailable SANGEETA NAVARRETE Attending Clinician Unavailable Essie Quintana Attending Clinician [facility] Attending Clinician Unavailable Corinna Freeman Attending Clinician CORINNA ASCENCIO Attending Clinician Unavailable Sangeeta Navarrete MD Attending Clinician Doctor Unassigned, Glendo Attending Clinician Unavailable ESSIE SARKAR Attending Clinician Unavailable Lab, Clc - Attending Clinician Unavailable Call, [facility] Phone Attending Clinician Unavailable Luis Castellon MD Attending Clinician Orlando Dye MD Attending Clinician Amilcar Richmond MD Attending Clinician Care, Ang Primary Attending Clinician Unavailable CHELI GARCIA Attending Clinician Unavailable Delio Tinajero MD Attending Clinician DELIO TINAJERO Attending Clinician Unavailable Aliya ARTIS, Geovani Attending Clinician INGA CHRIS Attending Clinician Unavailable Inga Vega Attending Clinician Brennan Brito MD Attending Clinician [phone] Pob, Adc Lab Main Attending Clinician Unavailable Jasper Bach MD Attending Clinician GIANNI SHANKAR Attending Clinician Unavailable Rachel PT, Neda Henderson Attending Clinician Unavailable Gianni Shankar MD Attending Clinician Tony DEMO SPECIALIST, Bipin Hoang Attending Clinician Unavailable Meir SALASAnatoliy Attending Clinician Unknown, Attending Attending Clinician Unavailable LUIS CASTELLON Admitting Clinician Unavailable ORLANDO DYE Admitting Clinician Unavailable SANGEETA NAVARRETE Admitting Clinician Unavailable Sangeeta Navarrete MD Admitting Clinician Orlando Dye MD Admitting Clinician CORINNA ASCENCIO Admitting Clinician Unavailable Payers Payer Name Policy Type Policy Number Effective Date Expiration Date Butch delgado [employer] [id number] 2020 00:00:00 [employer] [id number] 2020 CARE 00:00:00 Problems Condition Condition Condition Status Onset Resolution Last Treating Co mments Source Name Details Category Date Date Treatment Clinician Date Other Other Disease Active Univers acute acute 6- [place] of [place] without 00 Medical hemorrhage hemorrhage Br anch Nausea and Nausea and Disease Active U nivers vomiting vomiting 6-22 ity of in adult in adult 00:00: [place] patient patient 00 Medical Branch Dehydratio Dehydratio Disease Active U nivers n n 6-22 ity of 00:00: [place] [facility] Dizziness, Dizziness, Disease Active U nivers psychogeni psychogeni 6-22 it y of c c 00:00: [place] [facility] NAFLD NAFLD Disease Active Overview: Univer s (nonalcoho (nonalcoho 08-31 Formattin ity of lic fatty lic fatty 00:00: [place] liver liver 00 note Medical disease) disease) might be Bran ch different from the original. Added automatic ally from request for surgery [id number] Abnormal Abnormal Disease Active Overview: Un jagjit LFTs LFTs 08-31 Formattin ity of 00:00: g of this [place] 00 note Medical might be Branch different from the original. Added automatic ally from request for surgery [id number] NAFLD NAFLD Disease Active Overview: Univer s (nonalcoho (nonalcoho 08-31 Formattin ity of lic fatty lic fatty 00:00: [place] of this [place] liver liver 00 note Medical disease) disease) might be Bran ch different from the original. 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 Added automatic ally from request for surgery [id number] Allergies, Adverse Reactions, Alerts Allergy Allergy Status Severity Reaction(s) Onset Inactive Treating Comm ents Source Name Type Date Date Clinician ACETAMIN DRUG Active Unknown-Cmnt Un jagjit OPHEN-CO 11-23 ity of DEINE 00:00: Medical Branch Acetamin Propensi Active Unknown - Abdominal Univers ophen-Co ty to See comments 11-23 pain; it y of deine adverse 00:00: Nausea [place] reaction 00 Medical s Branch Social History Social Habit Start Date Stop Date Quantity Comments Source History of tobacco 2019-06-03 Cigarette Smoker University of use 00:00:00 [facility] History SDOH University o f Alcohol Comment [facility] ical Branch Exposure to 2021-01-16 2021-02-15 Not sure University of SARS-CoV-2 (event) 00:00:00 13:21:00 [facility] Tobacco Comment 2020-08-03 2020-08-03 vaping daily, no Uni versity of 00:00:00 00:00:00 cigarettes [facility] Alcohol intake 2020-07-07 2020-07-07 Current drinker Unive rsity of 00:00:00 00:00:00 of alcohol [facility] (finding) Branch Cigarettes smoked 2020-01-21 2020-01-21 Univers ity of current (pack per 00:00:00 00:00:00 [place] ) - Reported Branch Cigarette 2020-01-21 2020-01-21 University of pack-years 00:00:00 00:00:00 [place] [facility] Tobacco use and 2020-01-21 2020-01-21 Smokeless tobacco Un iversity of exposure 00:00:00 00:00:00 non-user [place] [facility] History SDOH 2020-01-21 2020-01-21 2 University o f Alcohol Frequency 00:00:00 00:00:00 [facility] edical Branch History SDOH 2020-01-21 2020-01-21 99 University o f Alcohol Std Drinks 00:00:00 00:00:00 [place] [facility] History SDTN 2020-01-21 2020-01-21 99 University o f Alcohol Binge 00:00:00 00:00:00 [facility] al Branch Sex [birth year] Universit y of 00:00:00 00:00:00 [facility] Smoking Status Start Date Stop Date Source Smokes tobacco daily 2020-01-21 00:00:00 Univers ity of [facility] Medications Ordered Filled Start Stop Current Ordering Indication Dosage Frequency Signature Comments Components Source Medication Medication Date Date Medication? Clinician (SIG) Name Name gabapentin 2020-03 Yes [id number] 300mg Take 1 Univers 300 mg 1-10 capsule by ity of capsule 00:00: mouth 3 [place] 00 (three) Medical times Branch daily. lisinopriL 2020-03 Yes [id number] 20mg Take 1 U nivers 20 mg 1-10 tablet by ity of tablet 00:00: mouth [place] 00 daily. Medical Branch metoprolol 2020-03 Yes [id number] 50mg Take 1 U nivers succinate 1-10 tablet by ity o f XL 50 mg 24 00:00: mouth [place] hr tablet 00 daily. Medical Branch gabapentin 2020-03 Yes [id number] 300mg Take 1 Univers 300 mg 1-10 capsule by ity of capsule 00:00: mouth 3 [place] 00 (three) Medical times Branch daily. lisinopriL 2020-03 Yes [id number] 20mg Take 1 U nivers 20 mg 1-10 tablet by ity of tablet 00:00: mouth [place] 00 daily. Medical Branch metoprolol 2020-03 Yes [id number] 50mg Take 1 U nivers succinate 1-10 tablet by ity o f XL 50 mg 24 00:00: mouth [place] hr tablet 00 daily. Medical Branch gabapentin 2020-03 Yes [id number] 300mg Take 1 Univers 300 mg 1-10 capsule by ity of capsule 00:00: mouth 3 [place] 00 (three) Medical times Branch daily. lisinopriL 2020-03 Yes [id number] 20mg Take 1 U nivers 20 mg 1-10 tablet by ity of tablet 00:00: mouth [place] 00 daily. Medical Branch metoprolol 2020-03 Yes [id number] 50mg Take 1 U nivers succinate 1-10 tablet by ity o f XL 50 mg 24 00:00: mouth [place] hr tablet 00 daily. Medical Branch gabapentin 2020-03 Yes [id number] 300mg Take 1 Univers 300 mg 1-10 capsule by ity of capsule 00:00: mouth 3 [place] 00 (three) Medical times Branch daily. lisinopriL 2020-03 Yes [id number] 20mg Take 1 U nivers 20 mg 1-10 tablet by ity of tablet 00:00: mouth [place] 00 daily. Medical Branch metoprolol 2020-03 Yes [id number] 50mg Take 1 U nivers succinate 1-10 tablet by ity o f XL 50 mg 24 00:00: mouth [place] hr tablet 00 daily. Medical Branch gabapentin 2020-03 Yes [id number] 300mg Take 1 Univers 300 mg 1-10 capsule by ity of capsule 00:00: mouth 3 [place] 00 (three) Medical times Branch daily. lisinopriL 2020-03 Yes [id number] 20mg Take 1 U nivers 20 mg 1-10 tablet by ity of tablet 00:00: mouth [place] 00 daily. Medical Branch metoprolol 2020-03 Yes [id number] 50mg Take 1 U nivers succinate 1-10 tablet by ity o f XL 50 mg 24 00:00: mouth [place] hr tablet 00 daily. Medical Branch ketorolac Yes [id number] 10mg Take 1 U nivers 10 mg 9-27 tablet by ity of tablet 00:00: mouth [place] 00 every 6 Medical (six) Branch hours as needed for Pain (scale 7-10). ketorolac Yes [id number] 10mg Take 1 U nivers 10 mg 9-27 tablet by ity of tablet 00:00: mouth [place] 00 every 6 Medical (six) Branch hours as needed for Pain (scale 7-10). ketorolac 2020-0 Yes [id number] 10mg Take 1 U nivers 10 mg 9-27 tablet by ity of tablet 00:00: mouth [place] 00 every 6 Medical (six) Branch hours as needed for Pain (scale 7-10). ketorolac 202-0 Yes [id number] 10mg Take 1 U nivers 10 mg 9-27 tablet by ity of tablet 00:00: mouth [place] 00 every 6 Medical (six) Branch hours as needed for Pain (scale 7-10). ketorolac 2020-0 Yes [id number] 10mg Take 1 U nivers 10 mg 9-27 tablet by ity of tablet 00:00: mouth [place] 00 every 6 Medical (six) Branch hours as needed for Pain (scale 7-10). methylPREDN 2020-0 Yes [id number] Take by Univers ISolone 9-15 mouth ity of (MEDROL, 00:00: SEE-INSTRU Ash as KHOI,) 4 mg 00 CTIONS. Medica l tablets follow Branch package directions methylPREDN 2020-0 Yes [id number] Take by Univers ISolone 9-15 mouth ity of (MEDROL, 00:00: SEE-INSTRU [place] as KHOI,) 4 mg 00 CTIONS. Medica l tablets follow Branch package directions methylPREDN 2020-0 Yes [id number] Take by Univers ISolone 9-15 mouth ity of (MEDROL, 00:00: SEE-INSTRU [place] as KHOI,) 4 mg 00 CTIONS. Medica l tablets follow Branch package directions methylPREDN 2020-0 Yes [id number] Take by Univers ISolone 9-15 mouth ity of (MEDROL, 00:00: SEE-INSTRU [place] as KHOI,) 4 mg 00 CTIONS. Medica l tablets follow Branch package directions methylPREDN 2020-0 Yes [id number] Take by Univers ISolone 9-15 mouth ity of (MEDROL, 00:00: SEE-INSTRU [place] KHOI,) 4 mg 00 CTIONS. Medica l tablets follow Branch package directions atorvastati 2020-0 Yes Take by Uni vers n calcium 9-08 mouth. ity of (LIPITOR 18:33: [place] ORAL) 12 Medical Branch ibuprofen 2021-0 Yes 400mg Take 400 Uni vers 200 mg 9-08 mg by ity of tablet 18:33: mouth [place] 12 every 6 Medical (six) Branch hours as needed. loratadine 2021-0 Yes Take by Univ ers (CLARITIN 9-08 mouth. ity of ORAL) 18:33: [place] [address] Medical Branch atorvastati 202-0 Yes Take by Uni vers n calcium 9-08 mouth. ity of (LIPITOR 18:33: [place] ORAL) 12 Medical Branch ibuprofen 2020-0 Yes 400mg Take 400 Uni vers 200 mg 9-08 mg by ity of tablet 18:33: mouth [place] 12 every 6 Medical (six) Branch hours as needed. loratadine 1-0 Yes Take by Univ ers (CLARITIN 9-08 mouth. ity of ORAL) 18:33: [place] [address] Medical Branch atorvastati 2020-0 Yes Take by Uni vers n calcium 9-08 mouth. ity of (LIPITOR 18:33: [place] ORAL) 12 Medical Branch ibuprofen 202-0 Yes 400mg Take 400 Uni vers 200 mg 9-08 mg by ity of tablet 18:33: mouth [place] 12 every 6 Medical (six) Branch hours as needed. loratadine 1-0 Yes Take by Univ ers (CLARITIN 9-08 mouth. ity of ORAL) 18:33: [place] [address] Medical Branch atorvastati 2020-0 Yes Take by Uni vers n calcium 9-08 mouth. ity of (LIPITOR 18:33: [place] ORAL) 12 Medical Branch ibuprofen 2021-0 Yes 400mg Take 400 Uni vers 200 mg 9-08 mg by ity of tablet 18:33: mouth [place] 12 every 6 Medical (six) Branch hours as needed. loratadine 1-0 Yes Take by Univ ers (CLARITIN 9-08 mouth. ity of ORAL) 18:33: [place] [address] Medical Branch atorvastati 202-0 Yes Take by Uni vers n calcium 9-08 mouth. ity of (LIPITOR 18:33: [place] ORAL) 12 Medical Branch ibuprofen 2021-0 Yes 400mg Take 400 Uni vers 200 mg 9-08 mg by ity of tablet 18:33: mouth [place] 12 every 6 Medical (six) Branch hours as needed. loratadine 2021-0 Yes Take by Univ ers (CLARITIN 9-08 mouth. ity of ORAL) 18:33: [place] 12 Medical Branch atorvastati Yes Take by Uni vers n calcium 9-08 mouth. ity of (LIPITOR 18:33: [place] ORAL) 12 Medical Branch ibuprofen Yes 400mg Take 400 Uni vers 200 mg 9-08 mg by ity of tablet 18:33: mouth [place] 12 every 6 Medical (six) Branch hours as needed. loratadine Yes Take by [facility] ers (CLARITIN 9-08 mouth. ity of ORAL) 18:33: [place] 12 Medical Branch docusate Yes [id number] 240mg Take 1 Un jagjit calcium 240 9-08 capsule by it y of mg capsule 00:00: mouth [place] 00 daily as Medical needed for Branch Constipati on (take daily when taking narcotics) . docusate Yes [id number] 240mg Take 1 Un jagjit calcium 240 9-08 capsule by it y of mg capsule 00:00: mouth once [place] 00 daily as Medical needed for Branch Constipati on (take daily when taking narcotics) . docusate Yes [id number] 240mg Take 1 Un jagjit calcium 240 9-08 capsule by it y of mg capsule 00:00: mouth [place] 00 daily as Medical needed for Branch Constipati on (take daily when taking narcotics) . docusate Yes [id number] 240mg Take 1 Un jagjit calcium 240 9-08 capsule by it y of mg capsule 00:00: mouth once [place] 00 daily as Medical needed for Branch Constipati on (take daily when taking narcotics) . docusate Yes [id number] 240mg Take 1 Un jagjit calcium 240 9-08 capsule by it y of mg capsule 00:00: mouth once [place] 00 daily as Medical needed for Branch Constipati on (take daily when taking narcotics) . traMADoL 50 Yes [id number] 50mg Take 1 Univ ers mg tablet 7-27 tablet by ity o f 00:00: mouth [place] 00 every 6 Medical (six) Branch hours as needed for Pain (scale 7-10) for up to 12 doses. Indication s: acute pain traMADoL 50 Yes [id number] 50mg Take 1 Univ ers mg tablet 7-27 tablet by ity o f 00:00: mouth [place] 00 every 6 Medical (six) Branch hours as needed for Pain (scale 7-10) for up to 12 doses. Indication s: acute pain traMADoL 50 0 Yes [id number] 50mg Take 1 Univ ers mg tablet 7-27 tablet by ity o f 00:00: mouth [place] 00 every 6 Medical (six) Branch hours as needed for Pain (scale 7-10) for up to 12 doses. Indication s: acute pain traMADoL 50 Yes [id number] 50mg Take 1 Univ ers mg tablet 7-27 tablet by ity o f 00:00: mouth [place] 00 every 6 Medical (six) Branch hours as needed for Pain (scale 7-10) for up to 12 doses. Indication s: acute pain traMADoL 50 Yes [id number] 50mg Take 1 Univ ers mg tablet 7-27 tablet by ity o f 00:00: mouth [place] 00 every 6 Medical (six) Branch hours as needed for Pain (scale 7-10) for up to 12 doses. Indication s: acute pain traMADoL 50 Yes [id number] 50mg Take 1 Univ ers mg tablet 7-27 tablet by ity o f 00:00: mouth [place] 00 every 6 Medical (six) Branch hours as needed for Pain (scale 7-10) for up to 12 doses. Indication s: acute pain metoprolol 2020- No [id number] 50mg Take 1 Univers succinate 7-19 11-09 tablet by ity of XL 50 mg 24 00:00: 00:00 mouth [place] hr tablet 00 :00 daily. Medical Branch docusate Yes [id number] 100mg Take 1 Un jagjit (COLACE) 7-08 capsule by ity o f 100 mg 00:00: mouth 2 [place] capsule 00 (two) Medical times Branch daily as needed for Constipati on. docusate Yes [id number] 100mg Take 1 Un jagjit (COLACE) 7-08 capsule by ity o f 100 mg 00:00: mouth 2 [place] capsule 00 (two) Medical times Branch daily as needed for Constipati on. docusate Yes [id number] 100mg Take 1 Un jagjit (COLACE) 7-08 capsule by ity o f 100 mg 00:00: mouth 2 [place] capsule 00 (two) Medical times Branch daily as needed for Constipati on. docusate 0 Yes [id number] 100mg Take 1 Un jagjit (COLACE) 7-08 capsule by ity o f 100 mg 00:00: mouth 2 [place] capsule 00 (two) Medical times Branch daily as needed for Constipati on. docusate 2020-0 Yes [id number] 100mg Take 1 Un jagjit (COLACE) 7-08 capsule by ity o f 100 mg 00:00: mouth 2 [place] capsule 00 (two) Medical times Branch daily as needed for Constipati on. docusate 2020-0 Yes [id number] 100mg Take 1 Un jagjit (COLACE) 7-08 capsule by ity o f 100 mg 00:00: mouth 2 [place] capsule 00 (two) Medical times Branch daily as needed for Constipati on. Pitavastati Yes [id number] 4mg Take 4 mg Univers n (LIVALO) 6-24 by mouth ity o f 4 mg Tab 00:00: daily. [place] [facility] Pitavastati Yes [id number] 4mg Take 4 mg Univers n (LIVALO) 6-24 by mouth ity o f 4 mg Tab 00:00: daily. [place] [facility] Pitavastati Yes [id number] 4mg Take 4 mg Univers n (LIVALO) 6-24 by mouth ity o f 4 mg Tab 00:00: daily. [place] [facility] Pitavastati Yes [id number] 4mg Take 4 mg Univers n (LIVALO) 6-24 by mouth ity o f 4 mg Tab 00:00: daily. [place] [facility] Pitavastati Yes [id number] 4mg Take 4 mg Univers n (LIVALO) 6-24 by mouth ity o f 4 mg Tab 00:00: daily. [place] [facility] Pitavastati Yes [id number] 4mg Take 4 mg Univers n (LIVALO) 6-24 by mouth ity o f 4 mg Tab 00:00: daily. [place] [facility] ondansetron Yes [id number] 4mg Take 1 Univers 4 mg 6-22 tablet by ity of disintegrat 00:00: mouth [place] ing tablet 00 every 12 Medic al (twelve) Branch hours as needed for Nausea and Vomiting (N/V). ondansetron 2020-0 Yes [id number] 4mg Take 1 Univers 4 mg 6-22 tablet by ity of disintegrat 00:00: mouth [place] ing tablet 00 every 12 Medic al (twelve) Branch hours as needed for Nausea and Vomiting (N/V). ondansetron 2020-0 Yes [id number] 4mg Take 1 Univers 4 mg 6-22 tablet by ity of disintegrat 00:00: mouth [place] ing tablet 00 every 12 Medic al (twelve) Branch hours as needed for Nausea and Vomiting (N/V). ondansetron 2020-0 Yes [id number] 4mg Take 1 Univers 4 mg 6-22 tablet by ity of disintegrat 00:00: mouth [place] ing tablet 00 every 12 Medic al (twelve) Branch hours as needed for Nausea and Vomiting (N/V). ondansetron 2020-0 Yes [id number] 4mg Take 1 Univers 4 mg 6-22 tablet by ity of disintegrat 00:00: mouth [place] ing tablet 00 every 12 Medic al (twelve) Branch hours as needed for Nausea and Vomiting (N/V). ondansetron 2020-0 Yes [id number] 4mg Take 1 Univers 4 mg 6-22 tablet by ity of disintegrat 00:00: mouth [place] ing tablet 00 every 12 Medic al (twelve) Branch hours as needed for Nausea and Vomiting (N/V). gabapentin 2020-2020- No [id number] 300mg Take 1 Univers 300 mg 4-15 11-09 capsule by ity of capsule 00:00: 00:00 mouth 3 [place] 00 :00 (three) Medical times Branch daily. lisinopriL 2020-2020- No [id number] 20mg Take 1 Univers 20 mg 4-15 11-09 tablet by ity of tablet 00:00: 00:00 mouth [place] 00 :00 daily. Medical Branch gabapentin 2020-0 2020- No [id number] 300mg Take 1 Univers 300 mg 4-15 11-09 capsule by ity of capsule 00:00: 00:00 mouth 3 [place] 00 :00 (three) Medical times Branch daily. lisinopriL 2020-0 1- No [id number] 20mg Take 1 Univers 20 mg 4-15 11-09 tablet by ity of tablet 00:00: 00:00 mouth [place] 00 :00 daily. Medical Branch atorvastati 2020- No [id number] 20mg Take 1 Univers n 20 mg 07-07 tablet by ity of tablet 00:00: 00:00 mouth at [place] 00 :00 bedtime. Medical Branch metoprolol 2020- No [id number] 50mg Take 50 mg Univers succinate 07-07 by mouth 2 ity of 50 mg CSpX 00:00: 00:00 (two) [place] 00 :00 times Medical daily. Branch Immunizations Ordered Filled Immunization Date Status Comments [facility] e Immunization Name Name Influenza Virus 2020-01-21 Completed Universit y of Vaccine Quad .5 mL 00:00:00 [facility] IM 6+ MO Branch Influenza Virus 2020-01-21 Completed Universit y of Vaccine [place] .5 mL 00:00:00 [facility] IM 6+ MO Branch Influenza Virus 2020-01-21 Completed Universit y of Vaccine [place] .5 mL 00:00:00 [facility] IM 6+ MO Branch Influenza Virus 2020-01-21 Completed Universit y of Vaccine [place] .5 mL 00:00:00 [facility] IM 6+ MO Branch Influenza Virus 2020-01-21 Completed Universit y of Vaccine [place] .5 mL 00:00:00 [facility] IM 6+ MO Branch Influenza Virus 2020-01-21 Completed Universit y of Vaccine [place] .5 mL 00:00:00 [facility] IM 6+ MO Branch Influenza Virus 2020-01-21 Completed Universit y of Vaccine [place] .5 mL 00:00:00 [facility] IM 6+ MO Branch Vital Signs Vital Name Observation Time Observation Value Comments Source Systolic blood 2021-02-15 19:31:00 133 mm[Hg] Univer sity [facility] pressure [facility] Diastolic blood 2021-02-15 19:31:00 73 mm[Hg] [facility] pressure [facility] Heart rate 2021-02-15 19:31:00 86 /min [facility] Body height 2021-02-15 19:31:00 182.9 cm [facility] Body weight 2021-02-15 19:31:00 112.991 kg [facility] BMI 2021-02-15 19:31:00 33.78 kg/m2 [facility] Body height 2020-11-23 15:09:00 182.9 cm [facility] Body weight 2020-11-23 15:09:00 123.378 kg [facility] BMI 2020-11-23 15:09:00 36.89 kg/m2 [facility] Procedures This patient has no known procedures. Encounters Start End Encounter Admission Attending Care Care Encounter Source Date/Time Date/Time Type Type Clinicians Facility Department ID 2021-01-23 Outpatient CANDE [facility] SOR [id number] Univers 09:38:39 LUIS ity [facility] 2021-01-23 Outpatient ORLANDO AGUILAR [facility] MEGAN [id number] Univers 08:23:38 [place] DYE i ty [facility] 2021-01-22 Outpatient SANGEETA KUHN [facility] SNS [id number] Univers 16:58:45 ity [facility] 2022-06-13 2022-06-13 Outpatient NIRMAL KINNEY [id number] Lai 16:01:03 16:01:03 [id number] F U[place] 2021-09-01 2021-09-01 RefEssie Norton [facility] [id number] Univers 00:00:00 00:00:00 SPECIALTY [id number] ity of [id number] [id number] [facility] 314 Branch 2021-08-05 2021-08-05 RefEssie Norton [facility] [id number] Univers 00:00:00 00:00:00 SPECIALTY [id number] ity of [id number] [id number] [facility] 314 Branch 2021-02-15 2021-02-15 Energy Conservation Specialist [facility] UNIVERSIT [id number] Univers 13:49:23 14:04:23 Visit Corinan Ascencio [facility] [id number] ity of [facility] [id number] [id number] [facility] 316 Branch 2021-02-15 2021-02-15 Office ABELINO Ascencio [id number] Univers 13:23:46 13:53:46 Visit Corinna Riddle HEALTH [id number] ity of CLINICS [id number] [id number] [facility] 071 Branch 2021-02-15 2021-02-15 Outpatient [facility] [id number] Univers 13:30:00 13:30:00 CORINNA hoang [facility] 2021-02-15 2021-02-15 Outpatient Kelsi [facility] [id number] Univers 13:30:00 13:30:00 CORINNA hoang [facility] 2021-01-31 2021-01-31 Refill Essie Sarkar [facility] [id number] Univers 00:00:00 00:00:00 SPECIALTY [id number] ity of [id number] [id number] [facility] 314 Branch 2021-01-04 2021-01-04 Outpatient [facility] [id number] Univers 16:00:00 16:00:00 CORINNA hoang [facility] 2020-12-19 2020-12-19 [facility] [id number] Univers 16:24:26 16:54:26 Visit Health [id number] it [id number] [id number] [place] [address] Branch Office Building 2020-12-19 2020-12-19 Outpatient SANGEETA KUHN [facility] [id number] Univers 16:30:00 16:38:43 ity of [facility] 2020-12-19 2020-12-19 Outpatient SANGEETA KUHN [facility] [id number] Univers 16:30:00 16:30:00 ity [facility] 2020-12-14 2020-12-14 Telephone Essie Sarkar [id number] Univers 00:00:00 00:00:00 [place] [id number] [id number] [id number] [address] 2020-12-07 2020-12-07 Telephone Javid [facility] 1.2.840.114 [id number] Univers 00:00:00 00:00:00 Health 350.1.13.10 [place] [phone] [address] Office Building 2020-12-01 2020-12-01 Telephone [facility] 1.2.840.114 [id number] Univers 00:00:00 00:00:00 Health 350.1.13.10 [place] [phone] [address] Office Building 2020-11-30 2020-11-30 [facility] 1.2.840.114 [id number] Univers 06:54:00 12:45:00 Encounter Health 350.1.13.10 [place] [phone] [facility] [address] [place] ([facility]) 2020-11-30 2020-11-30 Surgery [facility] 1.2.840.114 [id number] Univers 09:00:00 11:42:00 Health 350.1.13.10 [place] [phone] [facility] [address] ([facility]) 2020-11-30 2020-11-30 Orders Doctor KLAUDIA 1.2.840.114 [id number] Univers 00:00:00 00:00:00 Only Unassigned, AGUSTIN 350.1.13.10 ity of [place] [facility] 4.2.7.2.686 [place] as [phone] [facility] [address] 2020-11-29 2020-11-29 Outpatient ESSIE NIETO [facility] [id number] Univers 09:38:37 23:59:00 ity of [facility] 2020-11-29 2020-11-29 Hospital Essie Sarkar [facility] 1.2.840.114 [id number] Univers 09:38:37 23:59:00 Encounter [place] 350.1.13.10 ity of [place] 4.2.7.2.686 [facility] [phone] [facility] [address] 2020-11-29 2020-11-29 Energy Conservation Specialist Lab, [facility] 1.2.840.114 [id number] Univers 12:52:25 13:07:25 Visit [facility] [place] 350.1.13.10 ity of Clear 4.2.7.2.686 [facility] [phone] [facility] [address] ([facility]) 2020-11-29 2020-11-29 Outpatient Kelsi MELLO [facility] [id number] Univers 00:00:00 00:00:00 ity of [facility] 2020-11-29 2020-11-29 Orders Doctor KLAUDIA 1.2.840.114 [id number] Univers 00:00:00 00:00:00 Only Unassigned, AGUSTIN 350.1.13.10 ity of [place] [facility] 4.2.7.2.686 [facility] [phone] [facility] [address] 2020-11-23 2020-11-23 Pre-Anesth Call, [facility] 1.2.840.114 [id number] Univers 10:00:00 10:05:00 esitabitha [facility] HEALTH 350.1.13.10 ity of Evaluation CLEAR 4.2.7.2.686 [facility] [phone] [facility] [address] ([facility]) 2020-11-23 2020-11-23 [facility] [id number] Univers 00:00:00 00:00:00 ity of [facility] 2020-11-14 2020-11-14 Outpatient Kelsi [facility] [id number] Univers 13:00:00 13:00:00 ity of [facility] 2020-11-14 2020-11-14 Office [facility] 1.2.840.114 [id number] Univers 12:24:08 12:39:08 Visit Health 350.1.13.10 [place] [phone] [facility] [address] Office Building 2020-11-07 2020-11-07 Outpatient R CANDE [facility] [id number] Univers 13:00:00 13:00:00 LUIS ity [facility] 2020-11-07 2020-11-07 [facility] [id number] Univers 13:00:00 13:00:00 LUIS ity [facility] 2020-11-03 2020-11-03 Outpatient R ESSIE SARKAR [facility] [id number] Univers 14:00:00 14:00:00 ity [facility] 2020-10-27 2020-10-27 Telephone [facility] 1.2.840.114 [id number] Univers 00:00:00 00:00:00 Luis SPECIALTY 350.1.13.10 ity of CARE [place].2.7.2.686 [place] [phone] De marjorie OROZCO [address] [place] 2020-10-24 2020-10-24 Outpatient R [facility] [id number] Univers 13:00:00 13:00:00 ity of [facility] 2020-10-24 2020-10-24 Out[facility] [id number] Univers 13:00:00 13:00:00 LUIS ity [facility] 2020-10-21 2020-10-21 Orders Doctor KLAUDIA 1.2.840.114 [id number] Univers 00:00:00 00:00:00 Only Unassigned, AGUSTIN 350.1.13.10 ity of [place] [facility] 4.2.7.2.686 [place] [phone] [place] [address] [address] 2020-10-19 2020-10-19 Hospital [facility] 1.2.840.114 [id number] Univers 08:58:00 12:11:00 Encounter [place] STEVENS 350.1.13.10 ity of SCIENCES 4.2.7.2.686 [place] as BLD[place] [phone] [facility] [address] [place] 2020-10-19 2020-10-19 Surgery [facility] 1.2.924.063 [id number] Univers 09:20:00 09:40:00 Corinna STEVENS 350.1.13.10 ity of SCIENCES 4.2.7.2.686 [place] [phone] [facility] [address] [place] 2020-10-19 2020-10-19 Orders Doctor KLAUDIA 1.2.840.114 [id number] Univers 00:00:00 00:00:00 Only Unassigned, AGUSTIN 350.1.13.10 ity of [place] [facility] 4.2.7.2.686 [place] as [phone] [facility] [address] [place] 2020-10-18 2020-10-18 Telephone Cande [facility] 1.2.840.114 [id number] Univers 00:00:00 00:00:00 Luis SPECIALTY 350.1.13.10 it[place] of CARE [place].2.[place].2.[place] AT [phone] De tiffaniearamis OROZCO 198 [facility] 2020-10-17 2020-10-17 Telephone Essie Sarkar 1.2.840.114 [id number] Univers 00:00:00 00:00:00 [facility] 350.1.13.10 it y of HEALTH 4.2.[place].2.[place] [id number] [facility] [address] 2020-10-14 2020-10-14 Linnette [facility] 1.2.840.114 [id number] Univers 00:00:00 00:00:00 Amilcar SPECIALTY 350.1.13.10 ity of C[place].2.[place] [phone] De marjorie OROZCO 198 [facility] 2020-10-11 2020-10-11 Telephone Essie Sarkar 1.2.840.114 [id number] Univers 00:00:00 00:00:00 [facility] 350.1.13.10 it y of HEALTH [place] [phone] [facility] [address] 2020-10-102020-10-10 Telephone [facility] 1.2.840.114 [id number] Univers 00:00:00 00:00:00 Luis SPECIALTY 350.1.13.10 it[place] of C[place].2.[place] [phone] De marjorie OROZCO 198 [facility] 2020-10-03 2020-10-03 [facility] 1.2.840.114 [id number] Univers 15:18:36 23:59:00 Encounter Luis SPECIALTY 350.1.13.10 it[place] of C[place].2.[place] [phone] De tiffaniearamis OROZCO 809 [facility] 2020-10-03 2020-10-03 Outpatient R [facility] [id number] Univers 15:00:00 15:53:19 LUIS ity of [facility] 2020-10-03 2020-10-03 Office [facility] 1.2.840.114 [id number] [facility] [place] [facility] 14:51:52 15:53:19 Visit Luis SPECIALTY 350.1.13.10 ity of C[place].2.[place].2.[place] [phone] De tiffaniearamis OROZCO 198 [facility] 2020-10-03 2020-10-03 Outpatient R [facility] [id number] Univers 15:00:00 15:00:00 LUIS ity of [facility] 2020-10-03 2020-10-03 Telephone Essie Sarkar 1.2.840.114 [id number] Univers 00:00:00 00:00:00 [facility] 350.1.13.10 it y of HEALTH [place] [phone] [address] 2020-09-29 2020-09-29 Office CareJose 1.2.840 .114 [id number] Univers 11:34:49 12:38:02 Visit Essie Sarkar [facility] 350.1.13.10 ity of HEALTH [place] [id number] [address] 2020-09-29 2020-09-29 Outpatient Kelsi SARKAR ESSIE [facility] [id number] Univers 11:30:00 12:38:02 ity [facility] 2020-09-29 2020-09-29 Outpatient Kelsi SARKAR ESSIE [facility] [id number] Univers 11:30:00 11:30:00 ity [facility] 2020-09-29 2020-09-29 Telephone Care, Jose PARIKH 1.2.840.114 [id number] Univers 00:00:00 00:00:00 [facility] 350.1.13.10 it y of HE[place] [id number] [facility] [address] [place] 2020-09-27 2020-09-27 Outpatient Kelsi GARCIA [facility] [id number] Univers 15:15:00 15:15:00 [facility] 2020-09-27 2020-09-27 Outpatient Kelsi GARCIA [facility] [id number] Univers 15:15:00 15:15:00 [facility] 2020-09-26 2020-09-26 Office ABELINO Tinajero 1.2.743.965 [id number] Univers 15:20:03 16:12:07 Visit [facility] 350.1.13.10 ity of CLINICS 4.2.7.2.[place] [id number] [facility] [address] [place] 2020-09-26 2020-09-26 Outpatient Kelsi TINAJERO [facility] [id number] Univers 15:45:00 15:45:00 [facility] 2020-09-21 2020-09-21 Orders Doctor RUDOLPH 1.2.840.114 [id number] 00:00:00 00:00:00 Only Unassigned, AGUSTIN 350.1.13.10 [place] [facility] 4.2.7.2.686 [id number] 009 2020-09-21 2020-09-21 Orders Doctor KLAUDIA 1.2.840.114 [id number] Univers 00:00:00 00:00:00 Only UnassignedAGUSTIN 350.1.13.10 ity of [place] [facility]OSP[facility] 4.2.7.2.686 [place] as [phone] [facility] [address] 2020-09-15 2020-09-15 Office Care, Ang BRAZORIA 1.2.840.114 [id number] 09:38:15 13:28:59 Visit [facility] 350.1.13.10 HEALTH 4.2.7.2.686 UNIT [id number] 362 2020-09-15 2020-09-15 Office Care, [facility] Primary BRAZORIA 1.2.840 .114 [id number] Univers 09:38:15 13:28:59 Visit Essie Sarkar [facility] 350.1.13.10 ity of [facility] 4.2.7.2.[place] [id number] [facility] [address] 2020-09-15 2020-09-15 Outpatient R ESSIE SARKAR [facility] [id number] Univers 09:30:00 13:28:59 ity [facility] 2020-09-15 2020-09-15 Outpatient [facility] [id number] Univers 09:30:00 09:30:00 ity of [facility] 2020-09-13 2020-09-13 [facility] 1.2.840.114 [id number] Univers 18:42:19 23:59:00 Encounter Geovani Valles 350.1.13.10 ity [facility] 4.2.7.2.[place] [id number] [facility] [address] [place] 2020-09-13 2020-09-13 Outpatient Kelsi CHRIS [facility] [id number] Univers 18:00:00 18:45:52 INGA ity [facility] 2020-09-13 2020-09-13 Urgent Aliya Geovani [facility] 1.2.840.1 14 [id number] Univers 17:58:45 18:45:52 [facility] [address].1.13.[address] [facility] 4.2.7.2.686 [place] Professio [phone] [address] Office Building One 2020-09-13 2020-09-13 Outpatient [facility] [id number] Univers 18:00:00 18:00:00 INGA ity of [facility] 2020-09-08 2020-09-08 Refill Essie Sarkar [facility] 1.2.840.114 [id number] Univers 00:00:00 00:00:00 SPECIALTY 350.1.13.10 it[place] of [place] [phone] [place] [address] Branch 2020-08-04 2020-08-04 Telephone Sangeeta Navarrete [facility] 1.2.840.114 [id number] Univers 00:00:00 00:00:00 Health 350.1.13.10 it [place].2.[place] [phone] [address] Office Building 2020-07-26 2020-07-26 Pre-Anesth Call, [facility] 1.2.840.114 [id number] Univers 14:45:00 14:50:00 esia [facility] HEALTH 350.1.13.10 ity of Evaluation CLE[place] 4.2.7.2.686 [place] [phone] [facility] [address] ([facility]) 2020-07-26 2020-07-26 Case Defilippis, [facility] 1.2.840.114 [id number] Univers 00:00:00 00:00:00 Management Brennan [facility] 350.1.13.10 ity [place] [phone] [facility] [address] ([facility]) 2020-07-19 2020-07-19 Telephone Essie Sarkar 1.2.840.114 [id number] Univers 00:00:00 00:00:00 [facility] 350.1.13.10 it y of HEALTH 4.2.7.2.[place] [id number] [place] [address] Branch 2020-07-14 2020-07-14 Outpatient R SANGEETA NAVARRETE [facility] [id number] Univers 13:45:00 13:45:00 ity of [facility] 2020-07-14 2020-07-14 Office Sangeeta Navarrete [facility] 1.2.840.114 [id number] Univers 13:28:46 13:43:46 Visit Health 350.1.13.10 it y of [place] 4.2.[place].2.[place] [phone] [facility] [address] Office Building 2020-07-14 2020-07-14 Telephone Essie Sarkar 1.2.840.114 [id number] Univers 00:00:00 00:00:00 [facility] 350.1.13.10 it y of HEALTH 4.2.7.2.[place] [id number] [facility] [address] 2020-07-11 2020-07-11 Outpatient R ESSIE SARKAR [facility] [id number] Univers 11:30:00 11:30:00 ity of [facility] 2020-07-11 2020-07-11 Outpatient R ESSIE SARKAR [facility] [id number] Univers 11:30:00 11:30:00 ity of [facility] 2020-07-11 2020-07-11 Energy Conservation Specialist Larry, Kishan Lab Main [facility] 1.2.8 40.114 [id number] Univers 10:49:18 11:04:18 Visit Jasper Bach 350.1.13.10 ity of Essie Sarkar 4.2.7.2.686 [facility] [phone] De dical [facility] [address] Building 2020-07-11 2020-07-11 Orders Doctor KLAUDIA 1.2.840.114 [id number] Univers 00:00:00 00:00:00 Only Unassigned, AGUSTIN 350.1.13.10 ity of [place] [facility] 4.2.7.2.686 [place] [phone] [place] [address] Branch 2020-07-07 2020-07-07 Outpatient R RAAD [facility] [id number] Univers 14:00:00 15:30:46 GIANNI robles [facility] 2020-07-07 2020-07-07 Ancillary Neda Ramos [facility] 1.2.840. 114 [id number] Univers 13:50:45 15:30:46 Visit Gianni Shankar 350.1.13.10 ity of [place] 4.2.7.2.[place] [phone] De dical nal 179 [facility] 2020-07-07 2020-07-07 Office Care, Jose PARIKH 1.2.840 .114 [id number] Univers 10:18:47 11:12:29 Visit Essie Sarkar [facility] 350.1.13.10 ity of HEALTH 4.2.7.2.[place] [phone] [address] 2020-07-07 2020-07-07 Outpatient R ESSIE SARKAR [facility] [id number] Univers 10:30:00 10:30:00 ity of [facility] 2020-07-06 2020-07-06 Office ABELINO Ascencio 1.2.339.433 [id number] [facility] [place] [facility] 15:36:45 16:10:56 Visit Corinna E Y HEALTH 350.1.13.10 ity of [facility] 4.2.7.2.686 [place] [phone] [facility] [address] [place] 2020-07-06 2020-07-06 Outpatient [facility] [id number] Univers 16:00:00 16:00:00 CORINNA lorriechandu o f [facility] 2020-07-06 2020-07-06 Outpatient R [facility] [id number] Univers 16:00:00 16:00:00 CORINNA ity o f [facility] 2020-07-05 2020-07-05 Ancillary Neda Ramos [facility] 1.2.840. 114 [id number] [facility] 13:03:50 14:10:36 Visit Gianni Shankar 350.1.13.10 ity [facility] 4.2.7.2.[place] [phone] De dical nal 179 [facility] 2020-07-05 2020-07-05 Telephone Essie Sarkar 1.2.840.114 [id number] Univers 00:00:00 00:00:00 [facility] 350.1.13.10 it y of HE[place] 4.2.7.2.[place] [phone] [address] 2020-07-05 2020-07-05 Refill Essie Sarkar [facility] 1.2.840.114 [id number] Univers 00:00:00 00:00:00 SPECIALTY 350.1.13.10 [place] of [place].2.[place] [id number] [address] 2020-06-30 2020-06-30 Ancillary Bipin Jimenez [facility] 1.2.840. 114 [id number] Univers 09:12:19 10:26:59 Visit Gianni Shankar 350.1.13.10 ity of [place] 4.2.7.2.[place] [phone] De dical nal 179 [facility] 2020-06-28 2020-06-28 Ancillary Bipin Jimenez [facility] 1.2.840. 114 [id number] [facility] 09:19:31 09:59:31 Visit Gianni Shankar 350.1.13.10 ity of [place] 4.2.7.2.686 [place] [phone] De dical nal 179 [facility] 2020-06-23 2020-06-23 Ancillary Neda Ramos [facility] 1.2.840. 114 [id number] Univers 13:00:49 14:39:57 Visit Gianni Shankar 350.1.13.10 ity of [place] 4.2.7.2.686 [place] [phone] De dical nal 179 [facility] 2020-06-23 2020-06-23 Outpatient R RAAD [facility] [id number] [facility] 13:00:00 13:00:00 GIANNI ity of [facility] 2020-06-21 2020-06-22 Ancillary Neda Ramos [facility] 1.2.840. 114 [id number] Univers 14:08:27 08:20:10 Visit Gianni Shankar 350.1.13.10 ity of [place] 4.2.7.2.[place] [phone] De dical nal 179 [facility] 2020-06-21 2020-06-21 Telephone Essie Sarkar 1.2.840.114 [id number] Univers 00:00:00 00:00:00 [facility] 350.1.13.10 it y of HE[place]2.[place].2.[place] [id number] [address] 2020-06-20 2020-06-20 Outpatient Kelsi ASCENCIO [facility] [id number] Univers 13:00:00 13:00:00 CORINNA xiong f [facility] 2020-06-16 2020-06-16 Ancillary Bipin Jimenez [facility] 1.2.840. 114 [id number] Univers 15:35:32 16:15:32 Visit Gianni Shankar 350.1.13.10 ity of [place] 4.2.7.2.686 [place] [phone] De dical nal 179 [facility] 2020-06-14 2020-06-15 Ancillary Neda Ramos [facility] 1.2.840. 114 [id number] Univers 15:53:20 08:33:20 Visit Gianni Shankar 350.1.13.10 ity of [place] 4.2.7.2.[place] [phone] De dical nal 179 [facility] 2020-06-13 2020-06-13 Patient Meir [facility] 1.2.840.114 [id number] Univers 00:00:00 00:00:00 Outreach Anatoliy PRIMARY 350.1.13.10 i ty of [facility] 4.2.7.2.686 [place] [id number] De dical [address] [place] 2020-06-09 2020-06-09 Ancillary Bipin Jimenez [facility] 1.2.840. 114 [id number] Univers 14:51:43 15:59:23 Visit Gianni Shankar 350.1.13.10 ity of [place] 4.2.7.2.686 [place] [phone] De dical nal 179 [facility] 2020-06-07 2020-06-07 Ancillary Neda Ramos [facility] 1.2.840. 114 [id number] Univers 13:39:03 14:44:00 Visit Unknown, Attending [place] 350.1.13.1 0 ity of [place] 4.2.7.2.686 [place] [phone] De dical [facility] [address] Building 2020-06-07 2020-06-07 Outpatient R [facility] [id number] Univers 09:00:00 09:00:00 ity of [facility] 2020-05-26 2020-05-26 Outpatient [facility] [id number] Univers 09:00:00 09:00:00 GIANNI ity of [facility] 2020-05-23 2020-05-23 Outpatient R SONU [facility] [id number] Univers 11:00:00 11:00:00 CORINNA andrewy o f [facility] 2020-05-19 2020-05-19 Office [facility] 1.2.840.114 [id number] Univers 13:48:51 14:03:51 Visit Health 350.1.13.10 it y [place].2.[place] [phone] [address] Office Building 2020-05-19 2020-05-19 Outpatient [facility] [id number] Univers 14:00:00 14:00:00 ity of [facility] 2020-05-19 2020-05-19 [facility] [id number] Univers 14:00:00 14:00:00 ity of [facility] 2020-05-19 2020-05-19 Orders Doctor KLAUDIA 1.2.840.114 [id number] Univers 00:00:00 00:00:00 Only Unassigned, AGUSTIN 350.1.13.10 ity of [place] [facility] 4.2.7.2.686 [place] as [phone] [address] 2020-04-25 2020-04-25 Telephone Essie Sarkar [facility] 1.2.840.114 [id number] Univers 00:00:00 00:00:00 SPECIALTY 350.1.13.10 ity of [place].2.[place] [phone] [facility] [address] 2020-04-20 2020-04-20 Hospital Essie Sarkar [facility] 1.2.840.114 [id number] Univers 15:59:24 23:59:00 Encounter Hai 350.1.13.10 ity [facility] 4.2.7.2.686 [facility] [id number] [facility] [address] 2020-04-20 2020-04-20 Outpatient R ESSIE SARKAR [facility] [id number] Univers 00:00:00 00:00:00 ity [facility] 2020-04-01 2020-04-01 Telephone Essie Sarkar 1.2.840.114 [id number] Univers 00:00:00 00:00:00 [facility] 350.1.13.10 it y of HEALTH 4.2.7.2.686 [facility] [id number] [facility] [address] [place] 2020-03-10 2020-03-10 Telemedici Care, Jose PARIKH 1.2. 840.114 [id number] Univers 08:48:41 14:47:48 ne Visit Essie Sarkar [facility] 350.1.13.10 ity of [facility] 4.2.7.2.686 [facility] [id number] [address] 2020-03-10 2020-03-10 Outpatient R ESSIE SARKAR [facility] [id number] Univers 11:30:00 11:30:00 ity [facility] 2020-03-02 2020-03-02 Outpatient [facility] [id number] Univers 10:55:31 23:59:00 CORINNA robles o f [facility] 2020-03-02 2020-03-02 [facility] 1.2.840.114 [id number] Univers 10:55:31 23:59:00 Encounter Corinna Valles 350.1.13.10 ity [facility] 4.2.7.2.686 [facility] [phone] [facility] [address] 2020-02-15 2020-02-15 Energy Conservation Specialist [facility] 1.2.840.114 [id number] Univers 11:30:12 11:42:20 Visit Corinna Ascencio HEALTH 350.1.13.10 ity of CLINICS [place]2.7.2.[place] [id number] [facility] [address] 2020-02-15 2020-02-15 Office ELIZABETH Ascencio 1.2.050.383 [id number] Univers 10:41:08 11:25:54 Visit Corinna E Y HEALTH 350.1.13.10 ity of CLINICS [place].2.[place] [phone] [facility] [address] 2020-02-15 2020-02-15 Outpatient R [facility] [id number] Univers 11:00:00 11:00:00 CORINNA travis o f [facility] 2020-02-08 2020-02-08 Telephone Essie Sarkar JL [id number] Univers 00:00:00 00:00:00 [facility] [id number] [id number] [id number] [address] 2020-01-25 2020-01-25 Telephone Essie Sarkar [id number] Univers 00:00:00 00:00:00 [facility] [id number] [id number] [phone] [address] 2020-01-21 2020-01-21 Office Care, [facility] Roby PARIKH 1.2.840 .[id number] Univers 11:14:15 12:00:38 Visit Essie Sarkar [facility] [id number] [id number] [id number] [address] 2020-01-21 2020-01-21 Outpatient R ESSIE SARKAR [facility] 898 [id number] Univers 10:30:00 10:30:00 ity [facility] Results Test Description Test Time Test Comments Results Result Comments Source LIPID PANEL 2021-05-08 01:52:56 Test Item Value Reference Range Interpretation Comme nts CHOLESTEROL (test code = 2210) 160 MG/DL <200 TRIGLYCERIDES (test code = 2232) 128 MG/DL <150 HDL CHOLESTEROL (test code = 37 MG/DL >39 L 2219) CALC LDL CHOL (test code = 2237) 101 MG/DL <100 H NOTE: CALCULATED LDL IS BASED ON DALIA-WEIR METHOD WHICHINCLUDES A DJUSTABLE TRIGLYCERIDE:VL DL CHOLESTEROL RATIO.THIS FACT OR VARIES BY MEASURED TRIGLY CERIDE AND NON-HDLCHOLESTE ROL CONCENTRATIONS WITH INCREASED CALCULATED LDL SEENIN HIGHER T RIGLYCERIDE OR LOWER NON-HDL S PECIMENS. FOR MOREINFORMATION , SEE CLIENT ANNOUNCEMENT AT [email or web address] RATIO LDL/HDL (test code = 2.73 RATIO <3.55 2237) COMPREHENSIVE METABOLIC [id number] 01:52:56 Test Item Value Reference Range Interpretation Comments GLUCOSE (test code = 82 MG/DL 70-99 2216) BUN (test code = 10 MG/DL 6-20 2207) CREATININE (test 0.87 MG/DL 0.80-1.40 code = 221) eGFR (2020 CKD-EPI) 114 >60 (test code = 99363) ML/MIN/1.73 CALC BUN/CREAT (test 11 RATIO 6-28 code = 2235) SODIUM (test code = 142 MEQ/L 511-100 5874) POTASSIUM (test code 4.7 MEQ/L 3.5-5.4 = 2227) CHLORIDE (test code 101 MEQ/L 95-107 = 2215) CARBON DIOXIDE (test 23 MEQ/L 19-31 code = 2206) CALCIUM (test code = 10.5 MG/DL 8.5-10.5 2208) PROTEIN, TOTAL (test 8.0 G/DL 6.1-8.3 code = 2229) ALBUMIN (test code = 5.0 G/DL 3.5-5.2 2200) CALC GLOBULIN (test 3.0 G/DL 1.9-3.7 code = 2240) CALC A/G RATIO (test 1.7 RATIO 1.0-2.6 code = 2234) BILIRUBIN, TOTAL 0.5 MG/DL See_Comment [Automated message] (test code = 2207) The [facility] which generated this result transmitted ref erence range: <=1.2. T he reference range was not used to int erpret this result as normal/abnormal . ALKALINE PHOSPHATASE 110 U/L 40-117 (test code = 2204) AST (test code = 50 U/L 9-50 2217) ALT (test code = 82 U/L 5-50 H UNLESS OTH ERWISE 9) INDICATED, ALL TESTING PERFORM [facility], [address] [place] [address] [facility] DIRECTOR: SUSIE REYNAGA M.D. [place] NUMBER [id number] CAP ACCREDITATION N O. [id number] CBC W/AUTO DIFF WITH [id number] 03:40:33 Test Item Value Reference Range Interpretation Comments WBC (test code = 9.5 K/UL 3.5-11.0 1001) RBC (test code = 5.21 M/UL 4.50-6.10 1002) HEMOGLOBIN (test code 16.1 G/DL 13.5-17.0 = 1003) HEMATOCRIT (test code 46.8 % 40.0-51.0 = 1004) MCV (test code = 89.8 fL 80.0-99.0 1005) MCH (test code = 30.9 PG 25.0-33.0 1006) MCHC (test code = 34.4 G/DL 31.0-36.0 1007) RDW (test code = 12.1 % 11.5-15.0 1038) NEUTROPHILS (test 59.0 % code = 1008) LYMPHOCYTES (test 30.0 % code = 1010) MONOCYTES (test code 8.4 % = 1011) EOSINOPHILS (test 1.8 % code = 1012) BASOPHILS (test code 0.5 % = 1013) IMMATURE GRANULOCYTES 0.3 % (test code = 1036) NUCLEATED RBCS (test 0.0 /100 WBC'S See_Comment [Aut omated code = 1065) message] The sy stem which generated this result transmitted reference range : 0.0. The refere nce range was not u sed to interpret th is result as normal/abnormal . PLATELET COUNT (test 292 K/UL 130-400 code = 1015) ABSOLUTE NEUTROPHILS 5.59 K/UL 1.50-7.50 (test code = 1066) ABSOLUTE LYMPHOCYTES 2.84 K/UL 1.00-4.00 (test code = 1067) ABSOLUTE MONOCYTES 0.80 K/UL 0.20-1.00 (test code = 1068) ABSOLUTE EOSINOPHILS 0.17 K/UL 0.00-0.50 (test code = 1040) ABSOLUTE BASOPHILS 0.05 K/UL 0.00-0.20 (test code = 1069) ABS IMMATURE 0.03 K/UL 0.00-0.10 GRANULOCYTES (test code = 1020) ABS NUCLEATED RBCS 0.00 K/UL 0.00-0.11 (test code = 11774)
[2022-08-08] MEDS ORDERED: MORPHINE 4 MG/ML SYR ONE (15:23)
[2022-08-08] MEDS ORDERED: ONDANSETRON 4 MG/2 ML VIAL ONE (15:23)
[2022-08-08] MEDS ORDERED: NA CHLORIDE 0.9% 1,000 ML ONE ×2 (15:24→18:39)
[2022-08-08 15:26] LABS: Absolute Lymphocytes (CBC) 1.1 K/uL (0.7-4.9); Hematocrit 44.4 % (39.6-49.0); Lymphocytes % 14.9 % (15.3-44.8); MCV 90.4 fL (80-100); MPV 7.4 fL (7.6-11.3); RBC Red Blood Cell Count 4.91 M/uL (4.33-5.43)
[2022-08-08 15:57] LABS: Albumin 3.7 g/dL (3.4-5.0); Bilirubin Total 0.6 mg/dL (0.2-1.0); Potassium 4.1 mEq/L (3.5-5.1); Protein, Total 7.3 g/dL (6.4-8.2)
[2022-08-08 17:15] LABS: Specific Gravity 1.015 (1.005-1.030); Urine Bacteria None Seen /HPF (<20); Urine Bilirubin NEGATIVE (Negative); Urine Blood 1+ (Negative); Urine Clarity Clear (Clear); Urine Color Dark-Yellow (Yellow); Urine Glucose NEGATIVE (Negative); Urine Mucus Slight /HPF (None Seen); Urine Protein NEGATIVE (Negative); Urine RBC <5 /HPF (None Seen); Urine Urobilinogen Normal (Normal); Urine pH 6.5 (5.0-7.0)
--- NOTE | 2022-08-08 17:47 | RAD REPORT ---
EXAM DESCRIPTION: CT - Abdomen Pelvis W Contrast - 08/08/2022 4:32 pm CLINICAL HISTORY: ABD PAIN COMPARISON: No comparisons TECHNIQUE: Thin cut axial CT imaging of the abdomen and pelvis was performed following intravenous a dministration of 100 Isovue 300. Multiplanar reformats were generated and reviewed. All CT scans are performed using dose optimization technique as appropriate and may include automated exposure control or mA/KV adjustment according to patient size. FINDINGS: No suspicious findings in the lung bases. The liver demonstrates diffuse parenchymal hypoattenuation suggesting steatosis. Small subcapsular re gion of focal fatty sparing in the gallbladder bed. Adrenal glands, spleen, and pancreas show no susp icious findings. Gallbladder and biliary tree are without suspicious finding. Mild left hydroureteronephrosis. 7 millimeter calculus seen at the left vesicoureteral junction. Anot her nonobstructing left lower renal pole 8 millimeter calculus. No suspicious renal mass. No dilated bowel loops or bowel wall thickening. No free air, free fluid or inflammatory stranding. S mall umbilical hernia containing fat. No suspicious mass or bulky lymphadenopathy. The urinary bladde r is without significant finding. No suspicious bony findings. IMPRESSION: Mild left hydroureteronephrosis with a 7 millimeter obstructing left vesicoureteral junc tion calculus. Hepatic steatosis. The findings were communicated to Kiran Gambino on 08/08/2022 at 17:43 hours.
--- NOTE | 2022-08-08 18:00 | EDPHYS ---
Physician Documentation [facility] Name: Silvino López Age: 37 yrs Sex: Male : 1985 Arrival Date: 08/08/2022 Time: 14:01 Bed 5 Private MD: ED Physician Kiran Gambino HPI: 08/08 17:52 This 37 yrs old Male presents to ER via Ambulatory with complaints of Urinary luli Problem, Abdominal Pain, Nausea. 17:52 The patient presents to the emergency department with nausea, vomiting, that is luli intermittent. Onset: The symptoms/episode began/occurred today. Possible causes: unknown. The symptoms are aggravated by nothing. The symptoms are alleviated by nothing. Associated signs and symptoms: Pertinent positives: nausea, vomiting. Severity of symptoms: At their worst the symptoms were moderate in the emergency department the symptoms are unchanged. The patient has not experienced similar symptoms in the past. Historical: - Allergies: 14:56 No Known Allergies; nj1 - PMHx: 14:56 Hypercholesterolemia; Hypertensive disorder; nj1 - PSHx: 14:56 disc fusion; nj1 - Immunization history:: Client reports receiving the 2nd dose of the Covid vaccine. - Social history:: Smoking status: Reported history of juuling and/or vaping. ROS: 17:54 Constitutional: Negative for fever, chills, and weight loss, Eyes: Negative for injury, luli pain, redness, and discharge, ENT: Negative for injury, pain, and discharge, Neck: Negative for injury, pain, and swelling, Cardiovascular: Negative for chest pain, palpitations, and edema, Respiratory: Negative for shortness of breath, cough, wheezing, and pleuritic chest pain, : Negative for injury, bleeding, discharge, and swelling, MS/Extremity: Negative for injury and deformity, Skin: Negative for injury, rash, and discoloration, Neuro: Negative for headache, weakness, numbness, tingling, and seizure, Psych: Negative for depression, anxiety, suicide ideation, homicidal ideation, and hallucinations, Allergy/Immunology: Negative for hives, rash, and allergies, Endocrine: Negative for neck swelling, polydipsia, polyuria, polyphagia, and marked weight changes, Hematologic/Lymphatic: Negative for swollen nodes, abnormal bleeding, and unusual bruising. 17:54 Abdomen/GI: Positive for abdominal pain, of the anterior aspect of left lateral abdomen, posterior aspect of left lateral abdomen, left upper quadrant and left lower quadrant. Exam: 17:54 Constitutional: This is a well developed, well nourished patient who is awake, alert, luli and in no acute distress. Head/Face: Normocephalic, atraumatic. Eyes: Pupils equal round and reactive to light, extra-ocular motions intact. Lids and lashes normal. Conjunctiva and sclera are non-icteric and not injected. Cornea within normal limits. Periorbital areas with no swelling, redness, or edema. ENT: Nares patent. No nasal discharge, no septal abnormalities noted. Tympanic membranes are normal and external auditory canals are clear. Oropharynx with no redness, swelling, or masses, exudates, or evidence of obstruction, uvula midline. Mucous membranes moist. Neck: Trachea midline, no thyromegaly or masses palpated, and no cervical lymphadenopathy. Supple, full range of motion without nuchal rigidity, or vertebral point tenderness. No Meningismus. Chest/axilla: Normal chest wall appearance and motion. Nontender with no deformity. No lesions are appreciated. Cardiovascular: Regular rate and rhythm with a normal S1 and S2. No gallops, murmurs, or rubs. Normal PMI, no JVD. No pulse deficits. Respiratory: Lungs have equal breath sounds bilaterally, clear to auscultation and percussion. No rales, rhonchi or wheezes noted. No increased work of breathing, no retractions or nasal flaring. Male : Normal genitalia with no discharge or lesions. Skin: Warm, dry with normal turgor. Normal color with no rashes, no lesions, and no evidence of cellulitis. MS/ Extremity: Pulses equal, no cyanosis. Neurovascular intact. Full, normal range of motion. Neuro: Awake and alert, GCS 15, oriented to person, place, time, and situation. Cranial nerves II-XII grossly intact. Motor strength 5/5 in all extremities. Sensory grossly intact. Cerebellar exam normal. Normal gait. Psych: Awake, alert, with orientation to person, place and time. Behavior, mood, and affect are within normal limits. 17:54 Abdomen/GI: Inspection: abdomen appears normal, Bowel sounds: normal, Palpation: mild abdominal tenderness, in the anterior aspect of left lateral abdomen, posterior aspect of left lateral abdomen, left upper quadrant and left lower quadrant, Liver: no appreciated palpable abnormalities, Hernia: not appreciated. 17:54 Back: pain, is absent, ROM is normal, normal spinal alignment noted, CVA tenderness, that is mild, is noted on the left, muscle spasm, is not present. Vital Signs: 14:52 BP 136 / 97; Pulse 78; Resp 18; Temp 98.6(TE); Pulse Ox 99% ; Weight 113.4 kg; Height 6 nj1 ft. 0 in. ; Pain 6/10; 19:27 BP 131 / 82; Pulse 80; Resp 17; Pain 1/10; ll1 19:56 BP 124 / 69; Pulse 81; Resp 18; Temp 98.8; Pulse Ox 99% on R/A; aa9 14:52 Body Mass Index 33.91 (113.40 kg, 182.88 cm) nj1 14:52 Pain Scale: Adult nj1 19:27 Pain Scale: Adult ll1 MDM: 14:18 Patient medically screened. luli 17:56 Differential diagnosis: nephrolithiasis, pyelonephritis, UTI, diverticulitis, luli Nonspecific abd pain, gastritis, diverticulitis. Data reviewed: vital signs, nurses notes, old medical records, radiologic studies, CT scan, plain films. Consideration of Admission/Observation Escalation of care including admission/observation considered. I considered the following discharge prescriptions or medication management in the emergency department Medications were administered in the Emergency Department. See MAR. Independent interpretation of the following test(s) in the Emergency Department CT Scan: My interpretation is 7 MM LEFT UVJ. Test considered but Not performed: Ultrasound NO RENAL USG. Care significantly affected by the following chronic conditions: Hypertension, HYPERCHLESTEROL. Counseling: I had a detailed discussion with the patient and/or guardian regarding: the historical points, exam findings, and any diagnostic results supporting the discharge/admit diagnosis, lab results, radiology results, the need for outpatient follow up, for definitive care, a family practitioner, a urologist. 08/08 14:19 Order name: CBC with Diff; Complete Time: 16:14 [facility] 08/08 14:19 Order name: CMP; Complete Time: 16:14 [facility] 08/08 14:19 Order name: Lipase; Complete Time: 16:14 [facility] 08/08 14:19 Order name: Urinalysis w/ reflexes; Complete Time: 17:47 [facility] 08/08 14:19 Order name: CT Abd/Pelvis - IV Contrast Only [facility] 08/08 17:52 Order name: Abdomen 1 View (KUB) XRAY [facility] 08/08 14:19 Order name: IV Saline Lock; Complete Time: 15:06 [facility] 08/08 14:19 Order name: Labs collected and sent; Complete Time: 15:06 [facility] Administered Medications: 15:23 Drug: NS 0.9% IV 1000 ml Route: IV; Rate: 1 bolus; Site: left antecubital; ll1 18:39 Follow up: Response: No adverse reaction; IV Status: Completed infusion; IV Intake: ll1 1000ml 15:23 Drug: Ondansetron IVP 4 mg Route: IVP; Site: left antecubital; ll1 18:39 Follow up: Response: No adverse reaction ll1 15:23 Drug: morphine IVP or IV 4 mg {Note: rass 0, pain 6/10.} Route: IVP; Infused Over: 4 ll1 mins; Site: left antecubital; 18:39 Follow up: Response: No adverse reaction; Pain is decreased; RASS: Alert and Calm (0) ll1 18:38 Drug: NS 0.9% IV 1000 ml Route: IV; Rate: 1 bolus; Site: left antecubital; ll1 19:57 Follow up: Response: No adverse reaction; IV Status: Completed infusion; IV Intake: aa9 1000ml 18:39 Drug: Rocephin IV 1 grams Route: IV; Rate: per protocol; Site: left antecubital; ll1 19:58 Follow up: Response: No adverse reaction; IV Status: Completed infusion aa9 18:39 Drug: Flomax PO 0.4 mg Route: PO; ll1 18:39 Drug: Ketorolac IVP 30 mg Route: IVP; Site: left antecubital; ll1 Disposition Summary: 08/08/22 17:59 Discharge Ordered Location: Home luli Problem: new luli Symptoms: have improved luli Condition: Stable luli Diagnosis - Hydronephrosis with renal and ureteral calculous obstruction - 7 MM UVJ luli Followup: luli - With: Private Physician - When: 2 - 3 days - Reason: Recheck today's complaints, Continuance of care, Re-evaluation by your physician Followup: luli - With: Chang Dobbs MD - When: 2 - 3 days - Reason: Recheck today's complaints, Re-evaluation by your physician Discharge Instructions: - Discharge Summary Sheet luli - Kidney Stones luli - Kidney Stones, Feug-sq-Uhts luli - Hydronephrosis luli - Dietary Guidelines to Help Prevent Kidney Stones luli Forms: - Medication Reconciliation Form luli - Thank You Letter luli - Antibiotic Education luli - Prescription Opioid Use luli Prescriptions: - Flomax 0.4 mg Oral capsule - take 1 capsule by ORAL route every 24 hours; 30 capsule; Refills: 0, Product luli Selection Permitted - acetaminophen-codeine 300-30 mg Oral tablet - take 2 tablet by ORAL route 4 times per day as needed for pain; 24 tablet; luli Refills: 0, Product Selection Permitted - Zofran 4 mg Oral Tablet - take 1 tablet by ORAL route every 12 hours As needed; 20 tablet; Refills: 0, [facility] Product Selection Permitted - Cipro 500 mg Oral Tablet - take 1 tablet by ORAL route every 12 hours for 7 days; 14 tablet; Refills: 0, [facility] Product Selection Permitted Signatures: Dispatcher [employer] Kiran Grijalva MD MD cha Lewis, Lynsay RN RN ll1 Livia Curiel RN RN nj1 Bridgett Phelps RN aa9
--- NOTE | 2022-08-08 18:00 | ER ---
Nurse's Notes [facility] Name: Silvino López Age: 37 yrs Sex: Male : 1985 Arrival Date: 08/08/2022 Time: 14:01 Bed 5 Private MD: Diagnosis: Hydronephrosis with renal and ureteral calculous obstruction-7 MM UVJ Presentation: 08/08 14:52 Chief complaint: Patient states: Left lower abdominal pain, unable to urinate, nauseous nj1 since about 10 am this morning. Pain got worse in severity but has eased a little bit. Coronavirus screen: Vaccine status: Patient reports receiving the 2nd dose of the covid vaccine. Ebola Screen: Patient denies travel to an Ebola-affected area in the 21 days before illness onset. Initial Sepsis Screen: Does the patient meet any 2 criteria? No. Patient's initial sepsis screen is negative. Does the patient have a suspected source of infection? No. Patient's initial sepsis screen is negative. Risk Assessment: Do you want to hurt yourself or someone else? Patient reports no desire to harm self or others. Onset of symptoms was August 08, 2022 at 10:00. 14:52 Method Of Arrival: Ambulatory [facility] 14:52 Acuity: ELLEN 3 nj1 Historical: - Allergies: 14:56 No Known Allergies; nj1 - PMHx: 14:56 Hypercholesterolemia; Hypertensive disorder; nj1 - PSHx: 14:56 disc fusion; nj1 - Immunization history:: Client reports receiving the 2nd dose of the Covid vaccine. - Social history:: Smoking status: Reported history of juuling and/or vaping. Screenin:44 [facility] ED Fall Risk Assessment (Adult) Score/Fall Risk Level 0 - 2 = Low Risk ll1 Oriented to surroundings, Maintained a safe environment, Educated pt \T\ family on fall prevention, incl call for assistance when getting out of bed, Hourly rounding (assess needs \T\ fall precautionary measures) done. Abuse screen: Denies threats or abuse. Nutritional screening: No deficits noted. Tuberculosis screening: No symptoms or risk factors identified. Assessment: 14:59 General: Appears uncomfortable, Behavior is calm, cooperative, appropriate for age. ll1 Pain: Complains of pain in left lower quadrant Quality of pain is described as aching, throbbing. GI: Abdomen is flat, Bowel sounds present X 4 quads. Abd is soft and non tender X 4 quads. : Reports inability to void, pain in left flank(s), oliguria and dribbling. 15:00 Reassessment: No changes from previously documented assessment. Patient and/or family ll1 updated on plan of care and expected duration. Pain level reassessed. 15:25 Reassessment: No changes from previously documented assessment. Patient and/or family ll1 updated on plan of care and expected duration. Pain level reassessed. 16:50 Reassessment: No changes from previously documented assessment. UA sent to lab. ll1 18:45 Reassessment: No changes from previously documented assessment. Patient and/or family ll1 updated on plan of care and expected duration. Pain level reassessed. Patient is alert, oriented x 3, equal unlabored respirations, skin warm/dry/pink. 19:20 Reassessment: Patient appears in no apparent distress at this time. Patient and/or aa9 family updated on plan of care and expected duration. Pain level reassessed. Patient is alert, oriented x 3, equal unlabored respirations, skin warm/dry/pink. discharge pending fluid completion Patient denies pain at this time. 19:57 Reassessment: Patient appears in no apparent distress at this time. Patient and/or aa9 family updated on plan of care and expected duration. Pain level reassessed. Patient is alert, oriented x 3, equal unlabored respirations, skin warm/dry/pink. Patient denies pain at this time. Vital Signs: 14:52 BP 136 / 97; Pulse 78; Resp 18; Temp 98.6(TE); Pulse Ox 99% ; Weight 113.4 kg; Height 6 nj1 ft. 0 in. ; Pain 6/10; 19:27 BP 131 / 82; Pulse 80; Resp 17; Pain 1/10; ll1 19:56 BP 124 / 69; Pulse 81; Resp 18; Temp 98.8; Pulse Ox 99% on R/A; aa9 14:52 Body Mass Index 33.91 (113.40 kg, 182.88 cm) nj1 14:52 Pain Scale: Adult nj1 19:27 Pain Scale: Adult ll1 ED Course: 14:04 Patient arrived in ED. mr 14:18 Kiran Gambino MD is Attending Physician. [facility] 14:56 Triage completed. nj1 14:56 Arm band placed on right wrist. nj1 15:00 Inserted saline lock: 20 gauge in left antecubital area, using aseptic technique. Blood ll1 collected. 15:06 Kostas Means, RN is Primary Nurse. ll1 16:34 CT Abd/Pelvis - IV Contrast Only In Process Unspecified. EDMS 16:55 Urinalysis w/ reflexes Sent. ll1 17:58 Chang Dobbs MD is Referral Physician. luli 18:44 Patient has correct armband on for positive identification. Bed in low position. Call ll1 light in reach. Client placed on continuous cardiac and pulse oximetry monitoring. NIBP monitoring applied. 19:24 Abdomen 1 View (KUB) XRAY In Process Unspecified. EDMS 19:57 No provider procedures requiring assistance completed. IV discontinued, intact, aa9 bleeding controlled, No redness/swelling at site. Pressure dressing applied. Administered Medications: 15:23 Drug: NS 0.9% IV 1000 ml Route: IV; Rate: 1 bolus; Site: left antecubital; ll1 18:39 Follow up: Response: No adverse reaction; IV Status: Completed infusion; IV Intake: ll1 1000ml 15:23 Drug: Ondansetron IVP 4 mg Route: IVP; Site: left antecubital; ll1 18:39 Follow up: Response: No adverse reaction ll1 15:23 Drug: morphine IVP or IV 4 mg {Note: rass 0, pain 6/10.} Route: IVP; Infused Over: 4 ll1 mins; Site: left antecubital; 18:39 Follow up: Response: No adverse reaction; Pain is decreased; RASS: Alert and Calm (0) ll1 18:38 Drug: NS 0.9% IV 1000 ml Route: IV; Rate: 1 bolus; Site: left antecubital; ll1 19:57 Follow up: Response: No adverse reaction; IV Status: Completed infusion; IV Intake: aa9 1000ml 18:39 Drug: Rocephin IV 1 grams Route: IV; Rate: per protocol; Site: left antecubital; ll1 19:58 Follow up: Response: No adverse reaction; IV Status: Completed infusion aa9 18:39 Drug: Flomax PO 0.4 mg Route: PO; ll1 18:39 Drug: Ketorolac IVP 30 mg Route: IVP; Site: left antecubital; ll1 Medication: 18:44 VIS not applicable for this client. ll1 Intake: 18:39 IV: 1000ml; Total: 1000ml. ll1 19:57 IV: 1000ml; Total: 2000ml. aa9 Outcome: 17:59 Discharge ordered by . luli 19:57 Discharged to home ambulatory, with significant other. aa9 19:57 Condition: stable 19:57 Discharge instructions given to patient, family, Instructed on discharge instructions, follow up and referral plans. medication usage, Demonstrated understanding of instructions, follow-up care, medications, Prescriptions given X 4. 19:57 Patient left the ED. aa9 Signatures: Dispatcher [employer] EDMS Kiran Gambino MD MD cha Rivera, Mary Ellen Kostas Means, RN RN ll1 Bridgett Phelps RN RN aa9 Livia Curiel RN RN nj1 Corrections: (The following items were deleted from the chart) 16:56 16:55 Inserted saline lock: 20 gauge in left antecubital area, using aseptic technique. ll1 Blood collected. ll1 19:38 19:20 Reassessment: Patient appears in no apparent distress at this time. Patient aa9 and/or family updated on plan of care and expected duration. Pain level reassessed. Patient is alert, oriented x 3, equal unlabored respirations, skin warm/dry/pink. Patient denies pain at this time. aa9
[2022-08-08] MEDS ORDERED: TAMSULOSIN 0.4 MG SR CAP ONE (18:38)
[2022-08-08] MEDS ORDERED: CEFTRIAXONE 1000 MG/VIAL ONE (18:38)
[2022-08-08] MEDS ORDERED: KETOROLAC 30 MG/ML INJ ONE (18:39)
--- NOTE | 2022-08-08 19:36 | RAD REPORT ---
EXAM DESCRIPTION: RAD - Abdomen 1 View (KUB) - 08/08/2022 7:23 pm CLINICAL HISTORY: FLANK PAIN COMPARISON: Abdomen Pelvis W Contrast dated 08/08/2022 TECHNIQUE: Single AP view of the abdomen. FINDINGS: Nonobstructive bowel gas pattern. No air-fluid levels, free air, or pneumatosis. Contrast excretion within the left collecting system and bladder. Dilation of the left ureter. No suspicious c alcifications, although the excreted contrast may obscure small stones. No significant bony abnormality. IMPRESSION: As above.
[2022-08-08 20:12] VITALS: O2SAT 99
[2022-08-08 20:16] VITALS: BP 124/69; TEMP 98.8
== END 2022-08-08 19:57 | disposition home or self-care (01) ==
LOC: ER 14:01
DX: N13.2 Hydronephrosis with renal and ureteral calculous obstruction (principal)
CPT/HCPCS: 36415; 74018; 74177; 80053; 81001; 83690; 85025; J0696; J2405; J7030; Q9967